=== PATIENT | female | born 1950 | race Caucasian/White ===

== ENCOUNTER 2023-08-26 13:34 | Inpatient (IN) | payer MEDICARE ==
--- NOTE | 2023-08-26 15:00 | ED ---
Abdominal Pain HPI - General Source: patient, RN notes reviewed Mode of arrival: ambulatory Limitations: no limitations <Ute Zamudio - Last Filed: 08/26/23 14:58> <Wesley Rodriguez - Last Filed: 08/26/23 20:16> - General Chief Complaint: Abdominal Pain Stated Complaint: abd pain Time Seen by Provider: 08/26/23 14:59 - History of Present Illness Initial Comments: patient is a 73-year-old female presenting to the ER with chief complaint of abdominal pain. Patient states the going on for the last couple of days. Patient denies any fevers or chills. Patient endorses nausea. (Ute Zamudio) 73-year-old female with past medical history significant for appendectomy presents to the ED with a chief complaint of abdominal pain. Patient states 5 days ago started to experience right lower abdominal pain. Pain is waxing and waning in nature. Pain does not radiate. Since onset, patient reports pain has increased in severity and yesterday, started to experience nausea and vomiting. Her last bowel movement was yesterday which patient reports was somewhat typical of her bowel movements but smaller than usual. Also notes in the weeks prior has had some constipation. Associated dysuria. Patient reports that it has been difficult to urinate over the past 2 days. Denies hematuria. Denies urinary frequency or urgency. No fever or chills. No chest pain or shortness of breath. (Wesley Rodriguez) - Related Data Allergies Allergy/AdvReac Type Severity Reaction Status Date / Time No Known Allergies Allergy Verified 08/26/23 14:11 Review of Systems ROS Other: All systems not noted in ROS Statement are negative. <Ute Zamudio - Last Filed: 08/26/23 14:58> ROS Other: All systems not noted in ROS Statement are negative. <Wesley Rodriguez - Last Filed: 08/26/23 20:16> ROS Statement: Those systems with pertinent positive or pertinent negative responses have been documented in the HPI. Past Medical History Past Medical History: Diabetes Mellitus, Hyperlipidemia, Thyroid Disorder History of Any Multi-Drug Resistant Organisms: None Reported Past Surgical History: Section Past Psychological History: No Psychological Hx Reported Smoking Status: Never smoker Past Alcohol Use History: None Reported Past Drug Use History: None Reported <Ute Zamudio - Last Filed: 08/26/23 14:58> General Exam Limitations: no limitations <Ute Zamudio - Last Filed: 08/26/23 14:58> General appearance: alert, in no apparent distress Neck exam: Present: normal inspection Respiratory exam: Present: normal lung sounds bilaterally Cardiovascular Exam: Present: regular rate, normal rhythm GI/Abdominal exam: Present: soft (Diffuse abdominal tenderness palpation worse in the right lower quadrant with guarding. No flank tenderness to percussion bilaterally.) Neurological exam: Present: alert, oriented X3 Skin exam: Present: warm, dry <Wesley Rodriguez - Last Filed: 08/26/23 20:16> - General Exam Comments Initial Comments: Visual Physical Exam Vital signs reviewed General: Well-appearing, nontoxic, no acute distress. Head: Normocephalic, atraumatic Eyes: PERRLA, EOMI ENT: Airway patent Chest: Nonlabored breathing Skin: No visual rash, normal skin tone Neuro: Alert and oriented 3 Musculoskeletal: No gross abnormalities (Ute Zamudio) Course Vital Signs 08/26/23 08/26/23 08/26/23 14:08 17:29 18:36 Temperature 98.1 F 98.2 F Pulse Rate 92 74 75 Respiratory 20 18 18 Rate Blood Pressure 114/58 119/69 127/66 O2 Sat by Pulse 97 94 L 94 L Oximetry Medical Decision Making <Ute Zamudio - Last Filed: 08/26/23 14:58> - Lab Data Result diagrams: 08/26/23 15:16 08/26/23 15:16 <Wesley Rodriguez - Last Filed: 08/26/23 20:16> - Medical Decision Making I performed the quick note portion of the exam. Electronically signed by Ute Zamudio PA-C (Ute Zamudio) Was pt. sent in by a medical professional or institution ([facility], [facility], urgent care, hospital, or usp...) When possible be specific @ -No Did you speak to anyone other than the patient for history (EMS, parent, family, police, friend...)? What history was obtained from this source @ -No Did you review nursing and triage notes (agree or disagree)? Why? @ -I reviewed and agree with nursing and triage notes Were old charts reviewed (outside hosp., previous admission, EMS record, old EKG, old radiological studies, urgent care reports/EKG's, usp records)? Report findings @ -No old charts were reviewed Differential Diagnosis (chest pain, altered mental status, abdominal pain women, abdominal pain men, vaginal bleeding, weakness, fever, dyspnea, syncope, headache, dizziness, GI bleed, back pain, seizure, CVA, palpatations, mental health, musculoskeletal)? @ -Differential Abdominal Pain Women: Appendicitis, Cholecystitis, diverticulosis, ischemic bowel, pancreatitis, hepatitis, UTI, gastroenteritis, AAA, incarcerated hernia, bowel obstruction, constipation, inflammatory bowel, hepatitis, peptic ulcer disease, splenic infa rction, perforated viscus, vulvitis, ovarian torsion, PID, kidney stone, placenta abruption, this is not meant to be an all-inclusive list EKG interpreted by me (3pts min.). @ -None X-rays interpreted by me (1pt min.). @ -None done CT interpreted by me (1pt min.). @ -CT abdomen and pelvis shows a distal small bowel obstruction caused by a moderate sized right inguinal hernia containing fat and some small bowel. U/S interpreted by me (1pt. min.). @ -None done What testing was considered but not performed or refused? (CT, X-rays, U/S, labs)? Why? @ -None What meds were considered but not given or refused? Why? @ -None Did you discuss the management of the patient with other professionals (professionals i.e. DrAngel, PA, LAY OUT CARPENTER, lab, RT, psych nurse, child protective services social worker, equipment associate, teacher, disability liaison officer, rn case manager hospice)? Give summary @ -My attending physician, Dr. Oakley, discussed the case with Dr. Dutton of surgery who accepted admission with consults to medicine. Was smoking cessation discussed for >3mins.? @ -No Was critical care preformed (if so, how long)? @ -No Were there social determinants of health that impacted care today? How? (Homelessness, low income, unemployed, alcoholism, drug addiction, transportation, low edu. Level, literacy, decrease access to med. care, halfway, rehab)? @ -No Was there de-escalation of care discussed even if they declined (Discuss DNR or withdrawal of care, Hospice)? DNR status @ -No What co-morbidities impacted this encounter? (DM, HTN, Smoking, COPD, CAD, Cancer, CVA, ARF, Chemo, Hep., AIDS, mental health diagnosis, sleep apnea, morbid obesity)? @ -None Was patient admitted / discharged? Hospital course, mention meds given and route, prescriptions, significant lab abnormalities, going to OR and other pertinent info. @ -Discharge 73-year-old female presenting to the ED with a chief complaint of abdominal pain for the past 4-5 days with onset of nausea and vomiting today. Laboratory studies reviewed. CBC remarkable for an elevated white blood cell count 14.8. Chemistry panel largely unremarkable. Lactic acid within normal limits. UA shows no significant evidence of infection. CT of the abdomen and pelvis showed a distal small bowel obstruction caused by a moderately sized right inguinal hernia. Attempts at reduction was made however unsuccessful. Patient will be admitted to surgery due to small bowel obstruction secondary to inguinal hernia. NG tube placed. Patient kept nothing by mouth. Discussed that of care with patient and family who verbalized agreement. Undiagnosed new problem with uncertain prognosis? @ -No Drug Therapy requiring intensive monitoring for toxicity (Heparin, Nitro, Insulin, Cardizem)? @ -No Were any procedures done? @ -No Diagnosis/symptom? @ -Small bowel obstruction, incarcerated right inguinal hernia Acute, or Chronic, or Acute on Chronic? @ -Acute Uncomplicated (without systemic symptoms) or Complicated (systemic symptoms)? @ -Uncomplicated Side effects of treatment? @ -No Exacerbation, Progression, or Severe Exacerbation? @ -No Poses a threat to life or bodily function? How? (Chest pain, USA, DC, pneumonia, PE, COPD, DKA, ARF, appy, cholecystitis, CVA, Diverticulitis, Homicidal, Suicidal, threat to staff... and all critical care pts) @ -Possibly (Wesley Rodriguez) - Lab Data Lab Results 08/26/23 08/26/23 08/26/23 Range/Units 15:16 15:16 15:16 WBC 14.8 H (3.8-10.6) k/uL RBC 5.16 (3.80-5.40) m/uL Hgb 15.8 (11.4-16.0) gm/dL Hct 44.9 (34.0-46.0) % MCV 86.9 (80.0-100.0) fL MCH 30.6 (25.0-35.0) pg MCHC 35.2 (31.0-37.0) g/dL RDW 12.9 (11.5-15.5) % Plt Count 443 (150-450) k/uL MPV 7.0 Sodium 131 L (137-145) mmol/L Potassium 4.3 (3.5-5.1) mmol/L Chloride 87 L (98-107) mmol/L Carbon Dioxide 31 H (22-30) mmol/L Anion Gap 13 mmol/L BUN 22 H (7-17) mg/dL Creatinine 0.72 (0.52-1.04) mg/dL Est GFR (CKD-EPI)AfAm >90 (>60 ml/min/1.73 sqM) Est GFR (CKD-EPI)NonAf 83 (>60 ml/min/1.73 sqM) Glucose 137 H (74-99) mg/dL Plasma Lactic Acid Juan Carlos (0.7-2.0) mmol/L Calcium 11.0 H (8.4-10.2) mg/dL Total Bilirubin 0.6 (0.2-1.3) mg/dL AST 29 (14-36) U/L ALT 20 (4-34) U/L Alkaline Phosphatase 105 (38-126) U/L Total Protein 8.2 (6.3-8.2) g/dL Albumin 5.1 H (3.5-5.0) g/dL Amylase 60 (30-110) U/L Lipase 44 (23-300) U/L Urine Color Yellow Urine Appearance Turbid H (Clear) Urine pH 5.5 (5.0-8.0) Ur Specific [place] 1.028 (1.001-1.035) Urine Protein 2+ H (Negative) Urine Glucose (UA) Negative (Negative) Urine Ketones 2+ H (Negative) Urine Blood Negative (Negative) Urine Nitrite Negative (Negative) Urine Bilirubin Negative (Negative) Urine Urobilinogen <2.0 (<2.0) mg/dL Ur Leukocyte Esterase Negative (Negative) Urine RBC 3 (0-5) /hpf Ur Squamous Epith Cells 9 H (0-4) /hpf Amorphous Sediment Few H (None) /hpf Hyaline Casts 19 H (0-2) /lpf Urine Mucus Many H (None) /hpf 08/26/23 Range/Units 15:16 WBC (3.8-10.6) k/uL RBC (3.80-5.40) m/uL Hgb (11.4-16.0) gm/dL Hct (34.0-46.0) % MCV (80.0-100.0) fL MCH (25.0-35.0) pg MCHC (31.0-37.0) g/dL RDW (11.5-15.5) % Plt Count (150-450) k/uL MPV Sodium (137-145) mmol/L Potassium (3.5-5.1) mmol/L Chloride (98-107) mmol/L Carbon Dioxide (22-30) mmol/L Anion Gap mmol/L BUN (7-17) mg/dL Creatinine (0.52-1.04) mg/dL Est GFR (CKD-EPI)AfAm (>60 ml/min/1.73 sqM) Est GFR (CKD-EPI)NonAf (>60 ml/min/1.73 sqM) Glucose (74-99) mg/dL Plasma Lactic Acid Juan Carlos 1.5 (0.7-2.0) mmol/L Calcium (8.4-10.2) mg/dL Total Bilirubin (0.2-1.3) mg/dL AST (14-36) U/L ALT (4-34) U/L Alkaline Phosphatase (38-126) U/L Total Protein (6.3-8.2) g/dL Albumin (3.5-5.0) g/dL Amylase (30-110) U/L Lipase (23-300) U/L Urine Color Urine Appearance (Clear) Urine pH (5.0-8.0) Ur Specific [place] (1.001-1.035) Urine Protein (Negative) Urine Glucose (UA) (Negative) Urine Ketones (Negative) Urine Blood (Negative) Urine Nitrite (Negative) Urine Bilirubin (Negative) Urine Urobilinogen (<2.0) mg/dL Ur Leukocyte Esterase (Negative) Urine RBC (0-5) /hpf Ur Squamous Epith Cells (0-4) /hpf Amorphous Sediment (None) /hpf Hyaline Casts (0-2) /lpf Urine Mucus (None) /hpf Disposition <Ute Zamudio - Last Filed: 08/26/23 14:58> Time of Disposition: 20:15 <Wesley Rodriguez - Last Filed: 08/26/23 20:16> Clinical Impression: Incarcerated hernia, SBO (small bowel obstruction) Disposition: ADMITTED IP TO THIS [facility] Condition: Good Referrals: None,Stated [REFERRING] - 1-2 days
[2023-08-26 15:36] LABS: HCT 44.9 % (34.0-46.0); HGB 15.8 gm/dL (11.4-16.0); MCH 30.6 pg (25.0-35.0); MCHC 35.2 g/dL (31.0-37.0); MCV 86.9 fL (80.0-100.0); Platelet Count 443 k/uL (150-450); RBC 5.16 m/uL (3.80-5.40); RDW 12.9 % (11.5-15.5); WBC 14.8 k/uL (3.8-10.6)
[2023-08-26 16:01] LABS: ALT 20 U/L (4-34); AST 29 U/L (14-36); African American GFR (CKD) >90 (>60 ml/min/1.73 sqM); Albumin 5.1 g/dL (3.5-5.0); Alkaline Phosphatase 105 U/L (38-126); Amylase 60 U/L (30-110); Anion Gap 13 mmol/L; Blood Urea Nitrogen 22 mg/dL (7-17); Carbon Dioxide 31 mmol/L (22-30); Chloride 87 mmol/L (98-107); Glucose 137 mg/dL (74-99); Lipase 44 U/L (23-300); Non-African American GFR(CKD) 83 (>60 ml/min/1.73 sqM); Potassium 4.3 mmol/L (3.5-5.1); Sodium 131 mmol/L (137-145); Total Bilirubin 0.6 mg/dL (0.2-1.3); Total Protein 8.2 g/dL (6.3-8.2)
[2023-08-26 16:04] LABS: Amorphous Sediment,Urine Few /hpf; Appearance,Urine Turbid (Clear); Bilirubin,Urine Negative (Negative); Blood,Urine Negative (Negative); Color,Urine Yellow; Glucose,Urine (UA) Negative (Negative); Hyaline Casts,Urine 19 /lpf (0-2); Ketones,Urine 2+ (Negative); Leukocyte Esterase,Urine Negative (Negative); Mucus,Urine Many /hpf; Nitrite,Urine Negative (Negative); PH, Urine 5.5 (5.0-8.0); Protein,Urine 2+ (Negative); RBC,Urine 3 /hpf (0-5); Specific Gravity,Urine 1.028 (1.001-1.035); Squamous Epithelial Cell,Urine 9 /hpf (0-4); Urobilinogen,Urine <2.0 mg/dL (<2.0)
[2023-08-26] MEDS ORDERED: SODIUM CHLORIDE 0.9% 1,000 ML IV STA (16:22)
[2023-08-26] MEDS ORDERED: KETOROLAC 15 MG/ML 1 ML VIAL IVP STA (16:22)
[2023-08-26] MEDS: ONDANSETRON 4 MG/2 ML VIAL IVP STA (16:50)
--- NOTE | 2023-08-26 19:23 | CT ---
EXAMINATION TYPE: CT abdomen pelvis wo con CT DLP: 515.6 mGycm, Automated exposure control for dose reduction was used. DATE OF EXAM: 08/26/2023 5:25 PM COMPARISON: None. CLINICAL INDICATION:Female, 73 years old with history of rlq pain hx appy dysuria; RLQ abdominal pain x 5 days. TECHNIQUE: Axial CT of the abdomen and pelvis. Sagittal and coronal reformats were created on a [employer] workstation. Contrast used: mL of , (none if empty) Oral contrast used: without Oral Contrast (none if empty) FINDINGS: Exam is limited by lack of contrast. LOWER CHEST: Heart size upper limits of normal. Prominent pericardial fat. No pericardial or pleural effusion. Mild subsegmental atelectasis in the lung bases. ABDOMEN LIVER: Unremarkable GALLBLADDER AND BILE DUCTS: A 1.5 cm calcified gallstone. Gallbladder is nondistended and shows no hernandez rrounding inflammatory change. No biliary ductal dilatation is seen. PANCREAS: Mild fatty infiltration without definite acute abnormality. SPLEEN: Unremarkable. ADRENAL GLANDS: Unremarkable. KIDNEYS AND URETERS: No evidence of hydronephrosis or renal calculus. The ureters are unremarkable. There are multiple pelvic phleboliths. PELVIS BLADDER: Mildly distended, grossly unremarkable. REPRODUCTIVE: Unremarkable. ABDOMEN & PELVIS STOMACH AND BOWEL: Stomach is mildly distended. There is some distention of the duodenum which is flu id-filled. Multiple additional more distal dilated predominantly fluid-filled small bowel loops, syed uring up to 3.4 cm diameter. Point of transition occurs within a moderate-sized right inguinal hernia , which contains fat and a loop of bowel; the distal loop of bowel appears fluid filled mildly disten ded, with bowel coursing through entering and exiting the hernia appearing decompressed or squeezed. There may be mild haziness of the surrounding fat. No bowel wall pneumatosis is seen. The small bowel downstream from the hernia appears decompressed. Appendix not seen, patient reports a history of umu endectomy. Mild/moderate stool throughout the colon as well as numerous diverticuli, which do not umu ear inflamed. PERITONEUM/RETROPERITONEUM: No evidence of pneumoperitoneum or free fluid. VASCULATURE: Moderate atherosclerotic calcification of the aorta and branches. No evidence of AAA. MUSCULOSKELETAL: Bones appear somewhat demineralized and there are moderate degenerative changes thro ughout the visualized spine. Grade 1 anterolisthesis L4 and L5, appears degenerative. LYMPH NODES: No gross evidence for lymphadenopathy. SOFT TISSUE/ABDOMINAL WALL: See description of obstructing right inguinal hernia above. No significan t left inguinal hernia identified. IMPRESSION: 1. Distal small bowel obstruction, caused by a moderate sized right inguinal hernia containing fat a nd a loop of small bowel. Correlate clinically to exclude strangulation and/or incarceration. 2. Multiple colonic diverticula are present, without signs of inflammation to suggest diverticulitis . 3. Cholelithiasis.
[2023-08-26] MEDS ORDERED: MORPHINE SULFATE 4 MG/ML SYRINGE IVP STA (19:44)
[2023-08-26] MEDS ORDERED: HYDROmorphone 1 MG/ML 1 ML SYRINGE IVP STA (19:44)
[2023-08-26] MEDS ORDERED: NALOXONE 0.4 MG/ML 1 ML VIAL IV PRN (20:16)
[2023-08-26] MEDS ORDERED: ONDANSETRON 4 MG/2 ML VIAL IVP PRN (20:16)
[2023-08-26] MEDS: SODIUM CHLORIDE 0.9% 1,000 ML IV SCH (20:24)
[2023-08-26] MEDS: PIPERACILLIN-TAZOBACTAM 3.375 GM in SODIUM CHLORIDE 0.9% 100 ML IVPB SCH (20:24)
--- NOTE | 2023-08-26 20:56 | XR ---
EXAMINATION TYPE: XR chest 1V portable DATE OF EXAM: 08/26/2023 8:34 PM CLINICAL INDICATION:Female, 73 years old with history of NG tube placement; H COMPARISON: None TECHNIQUE: XR chest 1V portable Frontal view of the chest. FINDINGS: Lungs/Pleura: There is no evidence of pleural effusion, focal consolidation, or pneumothorax. Pulmonary vascularity: Unremarkable. Heart/mediastinum: Cardiomediastinal silhouette is enlarged and stable. Musculoskeletal: No acute osseous pathology. Other findings: None Lines/Tubes: Nasogastric tube with its distal tip and side-port projecting under the diaphragm. IMPRESSION: No acute cardiopulmonary disease/process.
[2023-08-26 21:38] LABS: INR 0.9 (<1.2); Partial Thromboplastin Time 24.4 sec (22.0-30.0); Prothrombin Time 10.5 sec (10.0-12.5)
[2023-08-27] MEDS: HYDROmorphone 0.5 MG/0.5 ML SYRINGE IVP PRN (03:18)
[2023-08-27] MEDS: PIPERACILLIN-TAZOBACTAM 3.375 GM in SODIUM CHLORIDE 0.9% 100 ML IVPB SCH ×3 (03:20→22:35)
[2023-08-27] MEDS ORDERED: DEXTROSE 50% SYRINGE 50 ML IVP PRN ×2 (07:54)
[2023-08-27 08:01] LABS: Glucose,Whole Blood 122 mg/dL (70-110)
[2023-08-27] MEDS: INSULIN ASPART (NovoLOG) 100 UNIT/ML VIAL SQ SCH ×4 (08:05→21:46)
[2023-08-27 08:39] LABS: HCT 41.9 % (34.0-46.0); MCH 29.7 pg (25.0-35.0); MCHC 33.4 g/dL (31.0-37.0); MCV 89.1 fL (80.0-100.0); Mean Platelet Volume 7.6; Platelet Count 377 k/uL (150-450); RDW 13.3 % (11.5-15.5); WBC 12.4 k/uL (3.8-10.6)
[2023-08-27 08:51] LABS: ALT 17 U/L (4-34); AST 26 U/L (14-36); African American GFR (CKD) 89 (>60 ml/min/1.73 sqM); Albumin 3.9 g/dL (3.5-5.0); Albumin/Globulin Ratio 1.5; Alkaline Phosphatase 76 U/L (38-126); Anion Gap 11 mmol/L; Blood Urea Nitrogen 27 mg/dL (7-17); Calcium 9.5 mg/dL (8.4-10.2); Carbon Dioxide 26 mmol/L (22-30); Chloride 95 mmol/L (98-107); Globulin 2.6 g/dL; Glucose 120 mg/dL (74-99); Magnesium 1.9 mg/dL (1.6-2.3); Non-African American GFR(CKD) 77 (>60 ml/min/1.73 sqM); Sodium 132 mmol/L (137-145); Total Bilirubin 0.7 mg/dL (0.2-1.3); Total Protein 6.5 g/dL (6.3-8.2)
--- NOTE | 2023-08-27 09:28 | XR ---
EXAMINATION TYPE: XR chest 1V portable DATE OF EXAM: 08/27/2023 COMPARISON: 08/26/2023 HISTORY: NG tube placement TECHNIQUE: Single frontal view of the chest is obtained. FINDINGS: Limited inspiration with bilateral infiltrate and tiny effusion. No pneumothorax. NG tube seen extending into the left upper quadrant. Hypertrophic and degenerative change of the spine. No si zable pneumothorax. Dilated bowel loops in the upper abdomen. IMPRESSION: 1. NG tube appears in good position. 2. Bilateral lower lobe infiltrate. 3. Dilated small bowel loops in the upper abdomen.
[2023-08-27] MEDS: HYDROmorphone 1 MG/ML 1 ML SYRINGE IVP PRN ×3 (10:14→22:29)
[2023-08-27] MEDS: SODIUM CHLORIDE 0.9% 1,000 ML IV SCH ×2 (10:17→18:21)
[2023-08-27] MEDS ORDERED: IV FLUID CONTINUATION 400 ML IV ONE (10:25)
--- NOTE | 2023-08-27 10:40 | P.GSHP ---
History of Present Illness H&P Date: 08/27/23 CHIEF COMPLAINT: Right lower quadrant abdominal pain HISTORY OF PRESENT ILLNESS: This is a 73-year-old female who presented with right lower quadrant abdominal pain for the past 5 days. She's been having nausea no vomiting. She had noted a bulge in the right lower quadrant but thought it was hot. She reports her last bowel movement was 3 days ago. And she is no longer having any flatus. Computed tomography scan abdomen and pelvis had shown a distal small bowel obstruction secondary to a right inguinal hernia containing small bowel and fat. Past surgical history does include appendectomy and . Patient does have NG tube in place. Patient denies any cardiac history. PAST MEDICAL HISTORY: Diabetes Mellitus, Hyperlipidemia, Thyroid Disorder PAST SURGICAL HISTORY: , appendectomy MEDICATIONS: See below ALLERGIES: See below SOCIAL HISTORY: No illicit drug use. REVIEW OF SYSTEMS: CONSTITUTIONAL: Denies fever or chills. HEENT: Denies blurred vision, vision changes, or eye pain. Denies hemoptysis CARDIOVASCULAR: Denies chest pain or pressure. RESPIRATORY: No shortness of breath. GASTROINTESTINAL: See HPI for pertinent findings HEMATOLOGIC: Denies bleeding disorders. GENITOURINARY: Denies any blood in urine or increased urinary frequency. SKIN: Denies pruitis. Denies rash. PHYSICAL EXAM: VITAL SIGNS: Reviewed GENERAL: Well-developed in no acute distress. ABDOMEN: Mildly distended. Tenderness in the right lower quadrant. Inguinal hernia present firm nonreducible. And tender to palpation. NEUROLOGIC: Alert and oriented. Cranial nerves II through XII grossly intact. LABORATORY DATA: WBC 14.8 down to 12.4 Hgb 14.0 platelets 377 INR 0.9 Sodium 132 potassium 4.0 creatinine 0.76 Lactic acid 1.5 LFTs normal lipase 44 IMAGING: Computed tomography scan abdomen and pelvis reported some distal small bowel obstruction caused by moderate sized right inguinal hernia containing fat and loop of small bowel. Correlate clinically to exclude strangulation and/or incarceration. Multiple colonic diverticuli are present without signs of infl ammation to suggest diverticulitis. Cholelithiasis. Chest x-ray NG tube appears in good position. Bilateral lower lobe infiltrate. Dilated small bowel loops in the upper abdomen. ASSESSMENT: 1. Distal small bowel obstruction caused by a moderate size right inguinal hernia containing fat in a loop of small bowel PLAN: -Patient scheduled for open repair of incarcerated right inguinal hernia today with Dr. Dutton -Keep patient nothing by mouth -Continue antibiotics -Continue supportive care -Continue NG tube for decompression Physician Chief Engineer Production note has been reviewed by physician. Signing provider agrees with the documented findings, assessment, and plan of care. Past Medical History Past Medical History: Diabetes Mellitus, Hyperlipidemia, Thyroid Disorder History of Any Multi-Drug Resistant Organisms: None Reported Past Surgical History: Section Past Psychological History: No Psychological Hx Reported Smoking Status: Never smoker Past Alcohol Use History: None Reported Past Drug Use History: None Reported Medications and Allergies Home Medications Medication Instructions Recorded Confirmed Type Ascorbic Acid [Vitamin C] 1,000 mg PO DAILY 08/26/23 08/26/23 History Atorvastatin [Lipitor] 40 mg PO HS 08/26/23 08/26/23 History Cinnamon Bark [Cinnamon] 500 mg PO DAILY 08/26/23 08/26/23 History Cyanocobalamin (Vitamin B-12) 1,000 mcg PO DAILY 08/26/23 08/26/23 History [Vitamin B-12] Ferrous Sulfate [Feosol] 325 mg PO BID 08/26/23 08/26/23 History Fish Oil/Dha/Epa [Fish Oil 1,200 1 cap PO DAILY 08/26/23 08/26/23 History mg Fish Oil] Garlic 1,000 mg PO DAILY 08/26/23 08/26/23 History Levothyroxine Sodium [Synthroid] 50 mcg PO DAILY 08/26/23 08/26/23 History Magnesium Oxide [Magox 400] 400 mg PO DAILY 08/26/23 08/26/23 History Omeprazole [PriLOSEC] 40 mg PO DAILY 08/26/23 08/26/23 History Turmeric Root Extract [Turmeric] 500 mg PO DAILY 08/26/23 08/26/23 History Zinc Gluconate [Zinc] 50 mg PO DAILY 08/26/23 08/26/23 History hydroCHLOROthiazide [Hydrodiuril] 12.5 mg PO DAILY 08/26/23 08/26/23 History metFORMIN HCL [Glucophage] 850 mg PO BID 08/26/23 08/26/23 History Allergies Allergy/AdvReac Type Severity Reaction Status Date / Time codeine Allergy Nausea & Verified 08/27/23 10:27 Vomiting Surgical - Exam Vital Signs Temp Pulse Resp BP Pulse Ox 98.1 F 92 20 114/58 97 08/26/23 14:08 08/26/23 14:08 08/26/23 14:08 08/26/23 14:08 08/26/23 14:08 Results - Labs 08/27/23 08:07 08/27/23 08:07 Abnormal Lab Results - Last 24 Hours (Table) 08/26/23 08/26/23 08/26/23 Range/Units 15:16 15:16 15:16 WBC 14.8 H (3.8-10.6) k/uL Sodium 131 L (137-145) mmol/L Chloride 87 L (98-107) mmol/L Carbon Dioxide 31 H (22-30) mmol/L BUN 22 H (7-17) mg/dL Glucose 137 H (74-99) mg/dL POC Glucose (mg/dL) (70-110) mg/dL Calcium 11.0 H (8.4-10.2) mg/dL Albumin 5.1 H (3.5-5.0) g/dL Urine Appearance Turbid H (Clear) Urine Protein 2+ H (Negative) Urine Ketones 2+ H (Negative) Ur Squamous Epith Cells 9 H (0-4) /hpf Amorphous Sediment Few H (None) /hpf Hyaline Casts 19 H (0-2) /lpf Urine Mucus Many H (None) /hpf 08/27/23 08/27/23 08/27/23 Range/Units 08:00 08:07 08:07 WBC 12.4 H (3.8-10.6) k/uL Sodium 132 L (137-145) mmol/L Chloride 95 L (98-107) mmol/L Carbon Dioxide (22-30) mmol/L BUN 27 H (7-17) mg/dL Glucose 120 H (74-99) mg/dL POC Glucose (mg/dL) 122 H (70-110) mg/dL Calcium (8.4-10.2) mg/dL Albumin (3.5-5.0) g/dL Urine Appearance (Clear) Urine Protein (Negative) Urine Ketones (Negative) Ur Squamous Epith Cells (0-4) /hpf Amorphous Sediment (None) /hpf Hyaline Casts (0-2) /lpf Urine Mucus (None) /hpf Diabetes panel 08/26/23 08/27/23 Range/Units 15:16 08:07 Sodium 131 L 132 L (137-145) mmol/L Potassium 4.3 4.0 (3.5-5.1) mmol/L Chloride 87 L 95 L (98-107) mmol/L Carbon Dioxide 31 H 26 (22-30) mmol/L BUN 22 H 27 H (7-17) mg/dL Creatinine 0.72 0.76 (0.52-1.04) mg/dL Glucose 137 H 120 H (74-99) mg/dL Calcium 11.0 H 9.5 (8.4-10.2) mg/dL AST 29 26 (14-36) U/L ALT 20 17 (4-34) U/L Alkaline Phosphatase 105 76 (38-126) U/L Total Protein 8.2 6.5 (6.3-8.2) g/dL Albumin 5.1 H 3.9 (3.5-5.0) g/dL Calcium panel 08/26/23 08/27/23 Range/Units 15:16 08:07 Calcium 11.0 H 9.5 (8.4-10.2) mg/dL Albumin 5.1 H 3.9 (3.5-5.0) g/dL Pituitary panel 08/26/23 08/27/23 Range/Units 15:16 08:07 Sodium 131 L 132 L (137-145) mmol/L Potassium 4.3 4.0 (3.5-5.1) mmol/L Chloride 87 L 95 L (98-107) mmol/L Carbon Dioxide 31 H 26 (22-30) mmol/L BUN 22 H 27 H (7-17) mg/dL Creatinine 0.72 0.76 (0.52-1.04) mg/dL Glucose 137 H 120 H (74-99) mg/dL Calcium 11.0 H 9.5 (8.4-10.2) mg/dL Adrenal panel 08/26/23 08/27/23 Range/Units 15:16 08:07 Sodium 131 L 132 L (137-145) mmol/L Potassium 4.3 4.0 (3.5-5.1) mmol/L Chloride 87 L 95 L (98-107) mmol/L Carbon Dioxide 31 H 26 (22-30) mmol/L BUN 22 H 27 H (7-17) mg/dL Creatinine 0.72 0.76 (0.52-1.04) mg/dL Glucose 137 H 120 H (74-99) mg/dL Calcium 11.0 H 9.5 (8.4-10.2) mg/dL Total Bilirubin 0.6 0.7 (0.2-1.3) mg/dL AST 29 26 (14-36) U/L ALT 20 17 (4-34) U/L Alkaline Phosphatase 105 76 (38-126) U/L Total Protein 8.2 6.5 (6.3-8.2) g/dL Albumin 5.1 H 3.9 (3.5-5.0) g/dL Assessment and Plan Plan: Incarcerated right inguinal hernia. Patient will undergo open repair with possible small bowel resection.
--- NOTE | 2023-08-27 10:51 | P.CONS ---
History of Present Illness - Reason for Consult Consult date: 08/27/23 Medical Management Requesting physician: Leroy Dutton - History of Present Illness History of Presenting Illness: Patient is a very pleasant 73-year-old female with a past medical history of hypertension, hyperlipidemia, type II [id number] diabetes mellitus and hypothyroidism. She presented to the emergency department on 08/26/23 secondary to complaints of abdominal pain with intractable nausea and vomiting. She underwent full evaluation in the emergency department. Labs completed and reviewed. CBC showing leukocytosis with WBC count of 14.8, coagulation profile normal findings, BMP showing mild hyponatremia with sodium 131, hypochloremia with chloride 87, hypercarbia with bicarb of 31 and elevated anion gap at 13. Liver profile normal findings. Urinalysis contaminated specimen not concerning for infection. CT abdomen and pelvis completed showing distal small bowel obstruction caused by moderate sized right inguinal hernia containing fat concerning for incarcerated hernia, multiple colonic diverticula, and cholelithiasis. EKG showing sinus rhythm 71 bpm with an incomplete bundle branch block and diffuse T-wave inversion in leads 1, 2, aVL, aVF, and leads V2 through V6 upon personal review and interpretation. No previous EKGs available for comparison. Patient was found to have a small bowel obstruction with incarcerated hernia. Patient was admitted under Gen. surgery team and we were consulted this morning for medical management and evaluation of this patient. Review of systems: Pertinent positives and negatives as discussed in HPI, a complete review of systems was performed and all other systems are negative. Physical exam: Vital signs reviewed and stable. General: Nontoxic, no distress and appears stated age. Derm: Skin warm and dry, normal coloration for ethnicity. Head: Atraumatic, normocephalic and symmetric. Eyes: EOMs intact, no lid lag, and anicteric sclera Mouth: no lip lesions, mucus membranes moist Cardiovascular: regular rate and rhythm with normal S1S2, systolic murmur, positive posterior tibial pulses bilaterally, and cap refill < 2 seconds. Lungs: Respirations even, regular, and unlabored on room air. Lungs CTA bilaterally, no rhonchi, no rales, no wheezing, and no accessory muscle usage. Abdominal: distended with diffuse tenderness throughout all quadrants. Ext: ROM intact. No gross muscle atrophy, no edema, no contractures Neuro: Speech clear, face symmetrical and CN II-XII grossly intact with no noted focal neuro deficits Psych: Alert and oriented to person, place, time, and situation. Appropriate and pleasant affect. Assessment and Plan of Care: Intractable abdominal pain, nausea, and vomiting Small bowel obstruction with incarcerated hernia -Order placed for x-ray to verify NG tube placement. -Continue NG tube to low intermittent suction for bowel decompression. -Continue IV fluid hydration. -Continue symptomatic care and pain management with antibiotics and opioid pain medications. -Maintain NPO status. -Patient scheduled to undergo surgical intervention. -Recommend cardiac clearance prior to surgical procedure. However if there is an urgent/emergent need for surgical intervention and secondary to concerns of bowel necrosis and risks of mortality and delaying surgery, there is no absolute contraindication for patient to undergo surgical intervention from a medical standpoint at this time. Abnormal EKG -EKG showing sinus rhythm 71 bpm with diffuse T-wave inversion in leads 1, 2, aVL, aVF, and leads V2 through V6 upon personal review and interpretation. No previous EKGs available for comparison. -Order placed for cardiology and recommending cardiology clearance prior to surgical intervention if able. -Order placed for echocardiogram Hypertension Hyperlipidemia -Patient to continue daily medication regimen with atorvastatin 40 mg nightly. Will hold hydrochlorothiazide as patient is currently nothing by mouth pending surgical procedure and on gentle IV fluid hydration. Type II [id number] diabetes mellitus -Hold metformin and place patient on glycemic protocol with NovoLog sliding scale to maintain tight glycemic control throughout hospitalization. Hypothyroidism -Patient to continue daily medication regimen with levothyroxine 50 g daily. Vital signs reviewed and stable with blood pressure 117/69, heart rate 61, respiratory rate 20, temperature 98.1F, SpO2 of 95% on room air. Thank you for allowing us to participate in the care of this pleasant patient. Do not hesitate to contact us with questions. Someone can be reached from the [facility] hospitalist group all hours of the day at [phone] or via [employer]. Patient was seen independently by Nurse Practitioner. This document was prepared using [employer] dictation software. Please allow for errors in natural foods clerk while rare they do occur. Dewayne Nava NP rendered care for this patient independently, reviewed the find ings and plan as documented in the note above. I did not physically speak with or examine the patient on this date. Past Medical History Past Medical History: Diabetes Mellitus, Hyperlipidemia, Thyroid Disorder History of Any Multi-Drug Resistant Organisms: None Reported Past Surgical History: Section Past Psychological History: No Psychological Hx Reported Smoking Status: Never smoker Past Alcohol Use History: None Reported Past Drug Use History: None Reported - Past Family History Mother Family Medical History: Diabetes Mellitus, Hypertension, Myocardial Infarction ([place]) Father Family Medical History: Congestive Heart Failure (CHF), Coronary Artery Disease (CAD), Hypertension Medications and Allergies Home Medications Medication Instructions Recorded Confirmed Type Ascorbic Acid [Vitamin C] 1,000 mg PO DAILY 08/26/23 08/26/23 History Atorvastatin [Lipitor] 40 mg PO HS 08/26/23 08/26/23 History Cinnamon Bark [Cinnamon] 500 mg PO DAILY 08/26/23 08/26/23 History Cyanocobalamin (Vitamin B-12) 1,000 mcg PO DAILY 08/26/23 08/26/23 History [Vitamin B-12] Ferrous Sulfate [Feosol] 325 mg PO BID 08/26/23 08/26/23 History Fish Oil/Dha/Epa [Fish Oil 1,200 1 cap PO DAILY 08/26/23 08/26/23 History mg Fish Oil] Garlic 1,000 mg PO DAILY 08/26/23 08/26/23 History Levothyroxine Sodium [Synthroid] 50 mcg PO DAILY 08/26/23 08/26/23 History Magnesium Oxide [Magox 400] 400 mg PO DAILY 08/26/23 08/26/23 History Omeprazole [PriLOSEC] 40 mg PO DAILY 08/26/23 08/26/23 History Turmeric Root Extract [Turmeric] 500 mg PO DAILY 08/26/23 08/26/23 History Zinc Gluconate [Zinc] 50 mg PO DAILY 08/26/23 08/26/23 History hydroCHLOROthiazide [Hydrodiuril] 12.5 mg PO DAILY 08/26/23 08/26/23 History metFORMIN HCL [Glucophage] 850 mg PO BID 08/26/23 08/26/23 History Allergies Allergy/AdvReac Type Severity Reaction Status Date / Time codeine Allergy Nausea & Verified 08/27/23 10:27 Vomiting Physical Exam Vitals: Vital Signs Temp Pulse Resp BP Pulse Ox 08/27/23 06:43 55 L 16 115/44 96 08/27/23 02:00 66 14 109/67 96 08/27/23 01:21 60 16 128/78 97 08/26/23 23:16 61 14 112/67 97 08/26/23 21:10 97 08/26/23 21:00 63 16 94/52 87 L 08/26/23 18:36 98.2 F 75 18 127/66 94 L 08/26/23 17:29 74 18 119/69 94 L 08/26/23 14:08 98.1 F 92 20 114/58 97 Results CBC & Chem 7: 08/28/23 05:44 08/28/23 06:00 Labs: Abnormal Lab Results - Last 24 Hours (Table) 08/26/23 08/26/23 08/26/23 Range/Units 15:16 15:16 15:16 WBC 14.8 H (3.8-10.6) k/uL Sodium 131 L (137-145) mmol/L Chloride 87 L (98-107) mmol/L Carbon Dioxide 31 H (22-30) mmol/L BUN 22 H (7-17) mg/dL Glucose 137 H (74-99) mg/dL Calcium 11.0 H (8.4-10.2) mg/dL Albumin 5.1 H (3.5-5.0) g/dL Urine Appearance Turbid H (Clear) Urine Protein 2+ H (Negative) Urine Ketones 2+ H (Negative) Ur Squamous Epith Cells 9 H (0-4) /hpf Amorphous Sediment Few H (None) /hpf Hyaline Casts 19 H (0-2) /lpf Urine Mucus Many H (None) /hpf
[2023-08-27 11:00] LABS: Glucose,Whole Blood 112 mg/dL (70-110)
[2023-08-27] MEDS: ONDANSETRON 4 MG/2 ML VIAL IVP STA (11:00)
[2023-08-27] MEDS ORDERED: HEPARIN SODIUM,PORCINE/PF 5,000 UNIT/0.5 ML SYRINGE SQ ONE (11:04)
[2023-08-27] MEDS ORDERED: MIDAZOLAM 2 MG/2 ML VIAL IVP ONE (11:13)
[2023-08-27] MEDS ORDERED: HEPARIN SODIUM,PORCINE 5,000 UNIT/ML 1 ML VIAL SQ ONE (11:25)
--- NOTE | 2023-08-27 11:29 | P.ANPRN ---
Procedure Note - Anesthesia - Nerve Block Performed Right Erector Spinae Single Time Out Performed: Yes Date of Procedure: 08/27/23 Procedure Start Time: :13 Procedure Stop Time: :18 Location of Patient: PreOp Indication: Acute Post-Operative Pain, Requested by Surgeon Sedation Type: Sedate with meaningful contact maintained Preparation: Sterile Prep Position: Sitting Catheter: None Needle Types: Pajunk Needle Gauge: 21 Ultrasound used to visualize needle placement: Yes Ultrasound used to observe medication spread: Yes Injectate: 0.5% Ropivacaine (see comment for volume) (Ropivacaine 15 ml+NS 10ml) Blood Aspirated: No Pain Paresthesia on Injection Noted: No Resistance on Injection: Normal Image Stored and Saved: Yes Events: Uneventful and Well Tolerated
[2023-08-27] MEDS ORDERED: ETOMIDATE 2 MG/ML 10 ML VIAL ONE (11:31)
[2023-08-27] MEDS ORDERED: NEOSTIGMINE 1 MG/ML 10 ML VIAL ONE (11:31)
[2023-08-27] MEDS ORDERED: SUCCINYLCHOLINE CHLORIDE 200 MG/10 ML VIAL IV ONE (11:31)
[2023-08-27] MEDS ORDERED: ROPIVACAINE 5 MG/ML 30 ML VIAL ONE (11:31)
[2023-08-27] MEDS ORDERED: GLYCOPYRROLATE 0.2 MG/ML 2 ML VIAL ONE (11:31)
[2023-08-27] MEDS ORDERED: ROCURONIUM 10 MG/ML (5 ML VIAL) IV ONE (11:31)
[2023-08-27] MEDS ORDERED: fentaNYL (PF) 50 MCG/ML 2 ML AMP ONE (11:31)
[2023-08-27] MEDS ORDERED: SODIUM CHLORIDE 0.9% (PF) 10 ML VIAL ONE (11:31)
[2023-08-27] MEDS ORDERED: LIDOCAINE 1% INJ 10MG/ML (20 ML MDV) ONE (11:31)
--- NOTE | 2023-08-27 11:34 | P.CRDCN ---
History of Present Illness History of present illness: HISTORY OF PRESENTING ILLNESS Patient is a pleasant 73-year-old female with history of hypertension, hyperlipidemia, diabetes mellitus type 2 hypothyroidism and strong family history of coronary artery disease who presents secondary to abdominal pain. Patient has been having abdominal pain for the last few days which has worsened and having nausea and throwing up and therefore presents emergency department. She does have right lower abdominal pain and CT abdomen and pelvis showed distal small bowel obstruction with right inguinal hernia containing fat and loop of small bowel and cannot exclude strangulation/incarceration. An NG tube was placed however still having abdominal pain. Blood work shows white blood cell count 14.8, hemoglobin 15.8, sodium 131, glucose 137. She denies any consistent chest pain however will have twinges which lasts for 3-4 seconds not typically with any exertion. She has not consistently walk up stairs however can walk a city block without stopping without any chest pain or shortness breath. She does have chronic dyspnea which she attributes to her age and not been as active. She does have strong family history of multiple brothers as well as both mom and dad dying in their 40s from heart disease as well as some brothers with defibrillators and stents. EKG shows sinus rhythm, intraventricular conduction delay with Q waves V1 and V2, LVH with T-wave inversions V3 through V6, 1 and aVL. There is no comparison. REVIEW OF SYSTEMS At the time of my exam: CONSTITUTIONAL: Denies fever or chills. CARDIOVASCULAR: +rare 2-4 second episodes of chest pain, none recently, +chronic shortness of breath, no orthopnea, PND or palpitations. RESPIRATORY: Denies cough. GASTROINTESTINAL: +abdominal pain, no diarrhea, constipation, +nausea + vom iting. MUSCULOSKELETAL: Denies myalgias. NEUROLOGIC: Denies numbness, tingling or weakness. ENDOCRINE: Denies fatigue, weight change, polydipsia or polyurina. GENITOURINARY: Denies burning, hematuria or urgency with micturation. HEMATOLOGIC: Denies history of anemia or bleeding. PHYSICAL EXAMINATION Vital signs reviewed. CONSTITUTIONAL: No apparent distress. HEENT: Head is normocephalic. Pupils are equal, round. Sclerae anicteric. Mucous membranes of the mouth are moist. No JVD. No carotid bruit. CHEST EXAMINATION: Lungs are clear to auscultation. No chest wall tenderness is noted on palpation or with deep breathing. HEART EXAMINATION: Regular rate and rhythm. S1, S2 heard. No murmurs, gallops or rub. ABDOMEN: Soft, +tender. EXTREMITIES: 2+ peripheral pulses, no lower extremity edema and no calf tenderness. NEUROLOGIC EXAMINATION: Patient is awake, alert and oriented x3. ASSESSMENT 1. Preoperative cardiovascular exam 2. Abnormal EKG 3. Small bowel obstruction, cannot exclude incarceration 4. SIRS 5. Chronic dyspnea 6. Atypical episodes of chest pain 7. Strong family history of CAD 8. Diabetes mellitus type 2 PLAN Patient's main presentation consistent with small bowel obstruction with CAT scan showing small bowel obstruction of the right inguinal hernia. Patient with abnormal EKG with T-wave inversions with no prior however not having any significant angina-type symptoms and likely consistent with LVH with strain. Patient can do 4 mets of activity without any angina-type symptoms and is higher risk given multiple risk factors however no absolute contraindications to surgery and on episodes appear to outweigh the risks. Patient is cleared from a cardiovascular standpoint for surgery. Check echo for completeness sake and likely given multiple risk factors and family history May consider outpatient stress testing. Past Medical History Past Medical History: Diabetes Mellitus, Hyperlipidemia, Thyroid Disorder History of Any Multi-Drug Resistant Organisms: None Reported Past Surgical History: Section Past Psychological History: No Psychological Hx Reported Smoking Status: Never smoker Past Alcohol Use History: None Reported Past Drug Use History: None Reported Medications and Allergies Home Medications Medication Instructions Recorded Confirmed Type Ascorbic Acid [Vitamin C] 1,000 mg PO DAILY 08/26/23 08/26/23 History Atorvastatin [Lipitor] 40 mg PO HS 08/26/23 08/26/23 History Cinnamon Bark [Cinnamon] 500 mg PO DAILY 08/26/23 08/26/23 History Cyanocobalamin (Vitamin B-12) 1,000 mcg PO DAILY 08/26/23 08/26/23 History [Vitamin B-12] Ferrous Sulfate [Feosol] 325 mg PO BID 08/26/23 08/26/23 History Fish Oil/Dha/Epa [Fish Oil 1,200 1 cap PO DAILY 08/26/23 08/26/23 History mg Fish Oil] Garlic 1,000 mg PO DAILY 08/26/23 08/26/23 History Levothyroxine Sodium [Synthroid] 50 mcg PO DAILY 08/26/23 08/26/23 History Magnesium Oxide [Magox 400] 400 mg PO DAILY 08/26/23 08/26/23 History Omeprazole [PriLOSEC] 40 mg PO DAILY 08/26/23 08/26/23 History Turmeric Root Extract [Turmeric] 500 mg PO DAILY 08/26/23 08/26/23 History Zinc Gluconate [Zinc] 50 mg PO DAILY 08/26/23 08/26/23 History hydroCHLOROthiazide [Hydrodiuril] 12.5 mg PO DAILY 08/26/23 08/26/23 History metFORMIN HCL [Glucophage] 850 mg PO BID 08/26/23 08/26/23 History Allergies Allergy/AdvReac Type Severity Reaction Status Date / Time codeine Allergy Nausea & Verified 08/27/23 10:27 Vomiting Physical Exam Vitals: Vital Signs Temp Pulse Pulse Resp BP BP Pulse Ox 08/27/23 10:30 97.7 F 72 16 108/54 94 L 08/27/23 10:09 66 18 115/63 96 08/27/23 08:00 98.1 F 61 20 117/69 95 08/27/23 06:43 55 L 16 115/44 96 08/27/23 02:00 66 14 109/67 96 08/27/23 01:21 60 16 128/78 97 08/26/23 23:16 61 14 112/67 97 08/26/23 21:10 97 08/26/23 21:00 63 16 94/52 87 L 08/26/23 18:36 98.2 F 75 18 127/66 94 L 08/26/23 17:29 74 18 119/69 94 L 08/26/23 14:08 98.1 F 92 20 114/58 97 Results 08/27/23 08:07 08/27/23 08:07 Cardiac Enzymes 08/26/23 08/27/23 Range/Units 15:16 08:07 AST 29 26 (14-36) U/L Coagulation 08/26/23 Range/Units 20:49 PT 10.5 (10.0-12.5) sec APTT 24.4 (22.0-30.0) sec CBC 08/26/23 08/27/23 Range/Units 15:16 08:07 WBC 14.8 H 12.4 H (3.8-10.6) k/uL RBC 5.16 4.70 (3.80-5.40) m/uL Hgb 15.8 14.0 (11.4-16.0) gm/dL Hct 44.9 41.9 (34.0-46.0) % Plt Count 443 377 (150-450) k/uL Comprehensive Metabolic Panel 08/26/23 08/27/23 Range/Units 15:16 08:07 Sodium 131 L 132 L (137-145) mmol/L Potassium 4.3 4.0 (3.5-5.1) mmol/L Chloride 87 L 95 L (98-107) mmol/L Carbon Dioxide 31 H 26 (22-30) mmol/L BUN 22 H 27 H (7-17) mg/dL Creatinine 0.72 0.76 (0.52-1.04) mg/dL Glucose 137 H 120 H (74-99) mg/dL Calcium 11.0 H 9.5 (8.4-10.2) mg/dL AST 29 26 (14-36) U/L ALT 20 17 (4-34) U/L Alkaline Phosphatase 105 76 (38-126) U/L Total Protein 8.2 6.5 (6.3-8.2) g/dL Albumin 5.1 H 3.9 (3.5-5.0) g/dL Current Medications Generic Name Dose Route Start Last Admin Trade Name Freq PRN Reason Stop Dose Admin Atorvastatin Calcium 40 mg 08/27/23 21:00 Atorvastatin 40 Mg Tab PO HS MAYLIN Dextrose/Water 25 ml 08/27/23 07:54 Dextrose 50% Syringe 50 Ml IVP PER PROTOCOL PRN Hypoglycemia Protocol Dextrose/Water 50 ml 08/27/23 07:54 Dextrose 50% Syringe 50 Ml IVP PER PROTOCOL PRN Hypoglycemia Protocol Hydromorphone HCl 0.5 mg 08/26/23 20:16 08/27/23 03:18 Hydromorphone 0.5 Mg/0.5 Ml Syringe IVP 0.5 mg Q3HR PRN Administration Moderate Pain (Scale 4 to 6) Hydromorphone HCl 1 mg 08/26/23 20:16 08/27/23 10:14 Hydromorphone 1 Mg/Ml 1 Ml Syringe IVP 1 mg Q3HR PRN Administration Severe Pain (Scale 7 to 10) Sodium Chloride 1,000 mls @ 75 mls/hr 08/26/23 20:00 08/27/23 10:17 Saline 0.9% IV 75 mls/hr .[id number] [facility] Administration Piperacillin Sod/Tazobactam 100 mls @ 25 mls/hr 08/26/23 20:00 08/27/23 03:20 Sod 3.375 gm/ Sodium Chloride IVPB 25 mls/hr Q8H [facility] Administration Protocol Insulin Aspart 0 unit 08/27/23 08:00 08/27/23 08:05 Insulin Aspart (Novolog) 100 Unit/Ml Vial SQ Not Given Q4HR [facility] Protocol Levothyroxine Sodium 50 mcg 08/28/23 06:30 Levothyroxine 50 Mcg Tab PO DAILY@0630 [facility] Naloxone HCl 0.2 mg 08/26/23 20:16 Naloxone 0.4 Mg/Ml 1 Ml Vial IV Q2M PRN Opioid Reversal Ondansetron HCl 4 mg 08/26/23 20:16 Ondansetron 4 Mg/2 Ml Vial IVP Q8HR PRN Nausea And Vomiting 08/27/23 08:07 08/27/23 08:07
[2023-08-27] MEDS ORDERED: LACTATED RINGERS 1,000 ML IV ONE ×3 (11:54→14:30)
[2023-08-27] MEDS ORDERED: NALOXONE 0.4 MG/ML 1 ML VIAL IV PRN (12:40)
[2023-08-27] MEDS ORDERED: HYDROmorphone 0.5 MG/0.5 ML SYRINGE IVP ONE ×2 (13:05→13:53)
[2023-08-27] MEDS ORDERED: HYDROmorphone 0.5 MG/0.5 ML SYRINGE SQ ONE (13:30)
[2023-08-27] MEDS ORDERED: ASPIRIN 81 MG PO STA (16:09)
[2023-08-27 16:13] LABS: Glucose,Whole Blood 114 mg/dL (70-110)
[2023-08-27 20:23] LABS: Glucose,Whole Blood 101 mg/dL (70-110)
[2023-08-27] MEDS: ATORVASTATIN 40 MG TAB PO SCH (21:47)
[2023-08-28 00:08] LABS: Glucose,Whole Blood 119 mg/dL (70-110)
[2023-08-28] MEDS: INSULIN ASPART (NovoLOG) 100 UNIT/ML VIAL SQ SCH ×6 (01:10→21:44)
[2023-08-28] MEDS: HYDROmorphone 1 MG/ML 1 ML SYRINGE IVP PRN ×5 (03:47→22:03)
[2023-08-28 05:37] LABS: Glucose,Whole Blood 110 mg/dL (70-110)
[2023-08-28] MEDS: LEVOTHYROXINE 50 MCG TAB PO SCH (06:03)
[2023-08-28] MEDS: PIPERACILLIN-TAZOBACTAM 3.375 GM in SODIUM CHLORIDE 0.9% 100 ML IVPB SCH ×3 (06:29→22:05)
[2023-08-28 08:02] LABS: Glucose,Whole Blood 91 mg/dL (70-110)
[2023-08-28 08:30] LABS: Basophils # (A) 0.03 X 10*3/uL (0.00-0.10); Basophils % (A) 0.4 %; Eosinophils # (A) 0.01 X 10*3/uL (0.04-0.35); Eosinophils % (A) 0.1 %; HCT 39.1 % (37.2-46.3); HGB 12.6 g/dL (12.0-15.0); Lymphocytes # (A) 0.76 X 10*3/uL (0.90-5.00); MCH 28.6 pg (27.0-32.0); MCHC 32.2 g/dL (32.0-37.0); MCV 88.9 FL (80.0-97.0); Monocytes # (A) 0.72 X 10*3/uL (0.20-1.00); Monocytes % (A) 8.5 %; NRBC Per 100 WBC 0 X 10*3/uL (0.00-0.01); Neutrophils # (A) 6.91 X 10*3/uL (1.80-7.70); Neutrophils % (A) 81.6 %; Platelet Count 318 X 10*3/uL (140-440); RDW 13.5 % (11.5-14.5); WBC 8.46 X 10*3/uL (4.50-10.00)
[2023-08-28] MEDS: ENOXAPARIN 40 MG/0.4 ML SYRINGE SQ SCH (08:43)
--- NOTE | 2023-08-28 10:55 | P.PN ---
Subjective Progress Note Date: 08/28/23 History of Presenting Illness: Patient is a very pleasant 73-year-old female with a past medical history of hypertension, hyperlipidemia, type II agr-exugisr-vzmtlavqj diabetes mellitus and hypothyroidism. She presented to the emergency department on 08/26/23 secondary to complaints of abdominal pain with intractable nausea and vomiting. She underwent full evaluation in the emergency department. Labs completed and reviewed. CBC showing leukocytosis with WBC count of 14.8, coagulation profile normal findings, BMP showing mild hyponatremia with sodium 131, hypochloremia with chloride 87, hypercarbia with bicarb of 31 and elevated anion gap at 13. Liver profile normal findings. Urinalysis contaminated specimen not concerning for infection. CT abdomen and pelvis completed showing distal small bowel obstruction caused by moderate sized right inguinal hernia containing fat concerning for incarcerated hernia, multiple colonic diverticula, and cholelithiasis. EKG showing sinus rhythm 71 bpm with an incomplete bundle branch block and diffuse T-wave inversion in leads 1, 2, aVL, aVF, and leads V2 through V6 upon personal review and interpretation. No previous EKGs available for comparison. Patient was found to have a small bowel obstruction with incarcerated hernia. Patient was admitted under Gen. surgery team and we were consulted this morning for medical management and evaluation of this patient. Physical exam: Patient seen and fully evaluated at bedside this morning. NG tube remains in place she is postop day 1. Patient reports feeling much better today stating her abdomen is overall sore but not painful like yesterday. She denies having any cardiac complaints including chest pain, palpitations, shortness of breath, cough or congestion, dizziness, lightheadedness, or experiencing any numbness/tingling/weakness/swelling in extremities. Vital signs reviewed and stable. General: Nontoxic, no distress and appears stated age. Derm: Skin warm and dry, normal coloration for ethnicity. Head: Atraumatic, normocephalic and symmetric. Eyes: EOMs intact, no lid lag, and anicteric sclera Mouth: no lip lesions, mucus membranes moist Cardiovascular: regular rate and rhythm with normal S1S2, systolic murmur, positive posterior tibial pulses bilaterally, and cap refill < 2 seconds. Lungs: Respirations even, regular, and unlabored on room air. Lungs CTA bilaterally, no rhonchi, no rales, no wheezing, and no accessory muscle usage. Abdominal: Vertical incision just lateral to umbilicus and right side of abdomen. Dressing clean, dry, and intact. NG tube in place. Mendoza catheter in place with cloudy urine and significant amount of sediment present. Ext: ROM intact. No gross muscle atrophy, no edema, no contractures Neuro: Speech clear, face symmetrical and CN II-XII grossly intact with no noted focal neuro deficits Psych: Alert and oriented to person, place, time, and situation. Appropriate and pleasant affect. Assessment and Plan of Care: Small bowel obstruction with incarcerated hernia Status post open repair of incarcerated right inguinal hernia with small bowel resection 08/27/23 -Continue NG tube -Strict NPO until diet is advanced by general surgery team. -Management per primary admitting general surgery team including wound/dressing care, pain management, DVT prophylaxis, NG tube management, and advancement of diet. Elevated troponins, possibly resulting from demand ischemia secondary to bowel necrosis New-onset left bundle branch block -Initial EKG showing sinus rhythm 71 bpm with incomplete block and diffuse T- wave inversion in leads 1, 2, aVL, and leads V2 through V6 upon personal review and interpretation. No previous EKGs available for comparison. -Repeat EKG showing normal sinus rhythm with left bundle branch block at 83 bpm. -Troponins trended overnight resulting in 0.363, 0.459, and 0.422. -Patient was given aspirin 324 mg by mouth 1 dose, she is post surgical open repair of incarcerated right inguinal hernia and bowel resection no anticoagulation until cleared by general surgery team. -Order placed for cardiology and recommending cardiology clearance prior to surgical intervention if able. -Echocardiogram completed pending results -Cardiology following. Appreciate recommendations. Hypertension Hyperlipidemia -Patient to continue daily medication regimen with atorvastatin 40 mg nightly. Will hold hydrochlorothiazide as patient is currently nothing by mouth pending surgical procedure and on gentle IV fluid hydration. Type II hud-xizhqyj-ogreqjqzt diabetes mellitus -Hold metformin and place patient on glycemic protocol with NovoLog sliding scale to maintain tight glycemic control throughout hospitalization. Hypothyroidism -Patient to continue daily medication regimen with levothyroxine 50 g daily. Data and imaging reviewed: -Troponins trended overnight resulting in 0.363, 0.459, and 0.422. CBC showing stable postoperative hemoglobin of 12.6 and resolution of leukocytosis from previous 14.8 down to 8.46. BMP unremarkable. Magnesium normal findings at 1.8. Liver profile also normal findings. -Vital signs reviewed and stable with blood pressure 123/67, heart rate 86, respiratory rate 16, temp 98.9F, SpO2 of 93% on room air. Thank you for allowing us to participate in the care of this pleasant patient. Do not hesitate to contact us with questions. Someone can be reached from the [facility] hospitalist group all hours of the day at [phone] or via [employer]. Patient was seen independently by Nurse Practitioner. This document was prepared using [employer] dictation software. Please allow for errors in milk pickup driver while rare they do occur. Dewayne Nava NP rendered care for this patient independently, reviewed the findings and plan as documented in the note above. I did not physically speak with or examine the patient on this date. Objective - Vital Signs Vital signs: Vital Signs Temp 98.9 F 08/28/23 07:22 Pulse 86 08/28/23 07:22 Resp 16 08/28/23 07:22 BP 123/67 08/28/23 07:22 Pulse Ox 93 L 08/28/23 07:22 FiO2 Intake & Output 08/27/23 08/28/23 08/28/23 18:59 06:59 18:59 Intake Total 2400 Output Total 125 600 Balance 2275 -600 Weight 68.039 kg Intake: IV 1400 Intake, IV Titration 1000 Amount Lactated Ringers 1,000 ml 1000 @ 0 mls/hr IV .[employer] [facility] Rx#:[id number] Output: Gastric Drainage 100 Urine 600 Estimated Blood Loss 25 Other: Voiding Method Bedside Commode Indwelling Catheter - Labs CBC & Chem 7: 08/28/23 05:44 08/28/23 06:00 Labs: Abnormal Lab Results - Last 24 Hours (Table) 08/27/23 08/27/23 08/27/23 Range/Units 08:07 10:59 16:12 Lymphocytes # (0.90-5.00) X 10*3/uL Eosinophils # (0.04-0.35) X 10*3/uL POC Glucose (mg/dL) 112 H 114 H (70-110) mg/dL Troponin I 0.363 H* (0.000-0.034) ng/mL 08/27/23 08/27/23 08/28/23 Range/Units 17:11 21:36 00:06 Lymphocytes # (0.90-5.00) X 10*3/uL Eosinophils # (0.04-0.35) X 10*3/uL POC Glucose (mg/dL) 119 H (70-110) mg/dL Troponin I 0.459 H* 0.422 H* (0.000-0.034) ng/mL 08/28/23 Range/Units 05:44 Lymphocytes # 0.76 L (0.90-5.00) X 10*3/uL Eosinophils # 0.01 L (0.04-0.35) X 10*3/uL POC Glucose (mg/dL) (70-110) mg/dL Troponin I (0.000-0.034) ng/mL
[2023-08-28 11:18] LABS: ALT 11 U/L (8-44); AST 21 U/L (13-35); Albumin 3.4 g/dL (3.8-4.9); Albumin/Globulin Ratio 1.89 Ratio (1.60-3.17); Alkaline Phosphatase 64 U/L (41-126); BUN/Creat Ratio 28.88 Ratio (12.00-20.00); Blood Urea Nitrogen 23.1 mg/dL (9.0-27.0); Chloride 101 mmol/L (96-109); Globulin 1.8 g/dL (1.6-3.3); Glucose 100 mg/dL (70-110); Magnesium 1.8 mg/dL (1.5-2.4); Potassium 4.2 mmol/L (3.5-5.5); Sodium 139 mmol/L (135-145); Total Bilirubin 0.5 mg/dL (0.3-1.2); Total Protein 5.2 g/dL (6.2-8.2)
--- NOTE | 2023-08-28 11:25 | P.PN ---
Subjective Progress Note Date: 08/28/23 CHIEF COMPLAINT: Small bowel obstruction secondary to incarcerated right inguinal hernia HISTORY OF PRESENT ILLNESS: Patient is postop day #1 status post open repair of incarcerated right inguinal hernia with small bowel resection. Patient reports her pain is controlled. She denies any nausea. Denies any flatus. Afebrile. NG tube with 100 and WBC is down from 12.4-8.46 Hgb 12.6 platelets 318 sodium is 139 potassium 4.2 creatinine 0.8 troponins elevated. Patient followed by cardiology service. Echo results pending. PHYSICAL EXAM: VITAL SIGNS: Reviewed. GENERAL: Well-developed in no acute distress. ABDOMEN: Soft. Nondistended. Tender incision site. Prevana wound vac intact. NEUROLOGIC: Alert and oriented. Cranial nerves II through XII grossly intact. ASSESSMENT: 1. Small bowel obstruction secondary to incarcerated right inguinal hernia PLAN: -Keep patient nothing by mouth -Continue NG tube for decompression -Continue IV fluids -Continue pain management -Encourage patient to use incentive spirometer -Encourage patient to increase activity level -GI prophylaxis Pepcid and DVT prophylaxis Lovenox Physician Refrigerating Technician note has been reviewed by physician. Signing provider agrees with the documented findings, assessment, and plan of care. Objective - Vital Signs Vital signs: Vital Signs Temp 98.9 F 08/28/23 07:22 Pulse 86 08/28/23 07:22 Resp 16 08/28/23 07:22 BP 123/67 08/28/23 07:22 Pulse Ox 93 L 08/28/23 07:22 FiO2 Intake & Output 08/27/23 08/28/23 08/28/23 18:59 06:59 18:59 Intake Total 2400 Output Total 125 600 Balance 2275 -600 Weight 68.039 kg Intake: IV 1400 Intake, IV Titration 1000 Amount Lactated Ringers 1,000 ml 1000 @ 0 mls/hr IV .[facility] Rx#:[id number] Output: Gastric Drainage 100 Urine 600 Estimated Blood Loss 25 Other: Voiding Method Bedside Commode Indwelling Catheter - Labs CBC & Chem 7: 08/28/23 05:44 08/27/23 08:07 Labs: Abnormal Lab Results - Last 24 Hours (Table) 08/27/23 08/27/23 08/27/23 Range/Units 08:07 10:59 16:12 Lymphocytes # (0.90-5.00) X 10*3/uL Eosinophils # (0.04-0.35) X 10*3/uL POC Glucose (mg/dL) 112 H 114 H (70-110) mg/dL Troponin I 0.363 H* (0.000-0.034) ng/mL 08/27/23 08/27/23 08/28/23 Range/Units 17:11 21:36 00:06 Lymphocytes # (0.90-5.00) X 10*3/uL Eosinophils # (0.04-0.35) X 10*3/uL POC Glucose (mg/dL) 119 H (70-110) mg/dL Troponin I 0.459 H* 0.422 H* (0.000-0.034) ng/mL 08/28/23 Range/Units 05:44 Lymphocytes # 0.76 L (0.90-5.00) X 10*3/uL Eosinophils # 0.01 L (0.04-0.35) X 10*3/uL POC Glucose (mg/dL) (70-110) mg/dL Troponin I (0.000-0.034) ng/mL
--- NOTE | 2023-08-28 11:29 | CA ---
Transthoracic Echo Report Name: Cherrie Chen Age: 73 Gender: F : 1950 Exam Date: 08/28/2023 08:58 Exam Location: [facility] Ht (in): 60 Wt (lb): 150 Ordering Physician: Dewayne Nava Attending/Referring Phys: Marketing Information Analyst Evelyn Delacruz RDCS Procedure CPT: Indications: cardiac clearance for surgery Cardiac Hx: Technical Quality: Fair Contrast 1: Total Dose (mL): Contrast 2: Total Dose (mL): MEASUREMENTS (Male / Female) Normal Values 2D ECHO LV Diastolic Diameter PLAX 3.4 cm 4.2 - 5.9 / 3.9 - 5.3 cm LV Systolic Diameter PLAX 2.6 cm IVS Diastolic Thickness 1.4 cm 0.6 - 1.0 / 0.6 - 0.9 cm LVPW Diastolic Thickness 1.5 cm 0.6 - 1.0 / 0.6 - 0.9 cm LV Relative Wall Thickness 0.9 RV Internal Dim ED PLAX 2.9 cm LA Volume 46.2 cm??? 18 - 58 / 22 - 52 cm??? LA Volume Index 26.9 cm???/m??? 16 - 28 cm???/m??? M-MODE Aortic Root Diameter MM 2.9 cm LA Systolic Diameter MM 5.4 cm LA Ao Ratio MM 1.9 AV Cusp Separation MM 1.7 cm DOPPLER AV Peak Velocity 202.6 cm/s AV Peak Gradient 16.4 mmHg AV Mean Velocity 148.5 cm/s AV Mean Gradient 9.3 mmHg AV Velocity Time Integral 31.1 cm LVOT Peak Velocity 158.6 cm/s LVOT Peak Gradient 10.1 mmHg LVOT Velocity Time Integral 27.5 cm MV Area PHT 3.1 cm??? Mitral E Point Velocity 58.4 cm/s Mitral A Point Velocity 87.5 cm/s Mitral E to A Ratio 0.7 MV Deceleration Time 242.6 ms MV E' Velocity 6.4 cm/s Mitral E to MV E' Ratio 9.1 TR Peak Velocity 233.8 cm/s TR Peak Gradient 21.9 mmHg Right Ventricular Systolic Press 24.7 mmHg FINDINGS Left Ventricle Moderately increased left ventricular wall thickness. Left ventricular cavity size normal. No obvious regional wall motion abnormalities. Left ventricular ejection fraction is estimated at 50-55 %. Right Ventricle Normal right ventricular size and function. Right ventricular systolic pressure within normal limits. Right Atrium Normal right atrial size. Left Atrium Mildly increased left atrial area. Mitral Valve Structurally normal mitral valve. Mitral valve thickened. Mild mitral annular calcification. Mild mitral regurgitation. Aortic Valve Trileaflet aortic valve. Mild aortic stenosis with a peak gradient of 16 mmHg and a mean gradient of 9 mmHg. Tricuspid Valve Structurally normal tricuspid valve. Mild tricuspid regurgitation. Pulmonic Valve Trace pulmonic regurgitation. Pericardium No pericardial effusion. Aorta Normal size aortic root and proximal ascending aorta. CONCLUSIONS Normal LV systolic function Mild aortic stenosis Mild mitral regurgitation Previewed by: Dr. Benjamín Helm MD (Electronically Signed) Final Date: 28 August 2023 11:29
[2023-08-28] MEDS ORDERED: FAMOTIDINE 20 MG/2 ML VIAL IV SCH (11:30)
[2023-08-28 12:00] LABS: Glucose,Whole Blood 94 mg/dL (70-110)
[2023-08-28] MEDS: LACTATED RINGERS 1,000 ML IV SCH ×2 (12:43→22:04)
--- NOTE | 2023-08-28 13:12 | P.PN ---
Subjective Progress Note Date: 08/28/23 HISTORY OF PRESENTING ILLNESS Patient is a pleasant 73-year-old female with history of hypertension, hyper lipidemia, diabetes mellitus type 2 hypothyroidism and strong family history of coronary artery disease who presents secondary to abdominal pain. Patient has been having abdominal pain for the last few days which has worsened and having nausea and throwing up and therefore presents emergency department. She does have right lower abdominal pain and CT abdomen and pelvis showed distal small bowel obstruction with right inguinal hernia containing fat and loop of small bowel and cannot exclude strangulation/incarceration. An NG tube was placed however still having abdominal pain. Blood work shows white blood cell count 14.8, hemoglobin 15.8, sodium 131, glucose 137. She denies any consistent chest pain however will have twinges which lasts for 3-4 seconds not typically with any exertion. She has not consistently walk up stairs however can walk a city block without stopping without any chest pain or shortness breath. She does have chronic dyspnea which she attributes to her age and not been as active. She does have strong family history of multiple brothers as well as both mom and dad dying in their 40s from heart disease as well as some brothers with defibrillators and stents. EKG shows sinus rhythm, intraventricular conduction delay with Q waves V1 and V2, LVH with T-wave inversions V3 through V6, 1 and aVL. There is no comparison. 08/28 Patient is seen today in follow-up on the [facility] floor. Patient is status post open repair of incarcerated right inguinal hernia. Echocardiogram reveals normal LV systolic function. Mild aortic stenosis. Mild mitral regurgitation. Blood pressure 123/67, heart rate is in the 80s and 90s, afebrile, pulse ox 93% on room air. Repeat blood work reveals WBC 8.4, hemoglobin 12.6. Electrolytes within normal limits and creatinine 0.8. PHYSICAL EXAMINATION Vital signs reviewed. CONSTITUTIONAL: No apparent distress. HEENT: Head is normocephalic. Pupils are equal, round. Sclerae anicteric. Mucous membranes of the mouth are moist. No JVD. No carotid bruit. CHEST EXAMINATION: Lungs are clear to auscultation. No chest wall tenderness is noted on palpation or with deep breathing. HEART EXAMINATION: Regular rate and rhythm. S1, S2 heard. No murmurs, gallops or rub. ABDOMEN: Soft, +tender. EXTREMITIES: 2+ peripheral pulses, no lower extremity edema and no calf tenderness. NEUROLOGIC EXAMINATION: Patient is awake, alert and oriented x3. ASSESSMENT 1. Preoperative cardiovascular exam 2. Abnormal EKG 3. Small bowel obstruction, status post open repair of incarcerated right inguinal hernia 08/27 4. SIRS 5. Chronic dyspnea 6. Atypical episodes of chest pain 7. Strong family history of CAD 8. Diabetes mellitus type 2 PLAN No further cardiac workup at this time Patient may follow-up in the office for outpatient stress test. Nurse practitioner note has been reviewed, I agree with the documented findings and plan of care. Patient was seen and examined. Objective - Vital Signs Vital signs: Vital Signs Temp 98.9 F 08/28/23 07:22 Pulse 86 08/28/23 07:22 Resp 16 08/28/23 07:22 BP 123/67 08/28/23 07:22 Pulse Ox 93 L 08/28/23 07:22 FiO2 Intake & Output 08/27/23 08/28/23 08/28/23 18:59 06:59 18:59 Intake Total 2400 Output Total 125 600 Balance 2275 -600 Weight 68.039 kg Intake: IV 1400 Intake, IV Titration 1000 Amount Lactated Ringers 1,000 ml 1000 @ 0 mls/hr IV .[facility] Rx#:[id number] Output: Gastric Drainage 100 Urine 600 Estimated Blood Loss 25 Other: Voiding Method Bedside Commode Indwelling Catheter - Labs CBC & Chem 7: 08/28/23 05:44 08/28/23 06:00 Labs: Abnormal Lab Results - Last 24 Hours (Table) 08/27/23 08/27/23 08/27/23 Range/Units 08:07 16:12 17:11 Lymphocytes # (0.90-5.00) X 10*3/uL Eosinophils # (0.04-0.35) X 10*3/uL BUN/Creatinine Ratio (12.00-20.00) Ratio POC Glucose (mg/dL) 114 H (70-110) mg/dL Hemoglobin A1c (<=6.0) % Troponin I 0.363 H* 0.459 H* (0.000-0.034) ng/mL Total Protein (6.2-8.2) g/dL Albumin (3.8-4.9) g/dL 08/27/23 08/28/23 08/28/23 Range/Units 21:36 00:06 05:44 Lymphocytes # (0.90-5.00) X 10*3/uL Eosinophils # (0.04-0.35) X 10*3/uL BUN/Creatinine Ratio (12.00-20.00) Ratio POC Glucose (mg/dL) 119 H (70-110) mg/dL Hemoglobin A1c 6.1 H (<=6.0) % Troponin I 0.422 H* (0.000-0.034) ng/mL Total Protein (6.2-8.2) g/dL Albumin (3.8-4.9) g/dL 08/28/23 08/28/23 Range/Units 05:44 06:00 Lymphocytes # 0.76 L (0.90-5.00) X 10*3/uL Eosinophils # 0.01 L (0.04-0.35) X 10*3/uL BUN/Creatinine Ratio 28.88 H (12.00-20.00) Ratio POC Glucose (mg/dL) (70-110) mg/dL Hemoglobin A1c (<=6.0) % Troponin I (0.000-0.034) ng/mL Total Protein 5.2 L (6.2-8.2) g/dL Albumin 3.4 L (3.8-4.9) g/dL
[2023-08-28] MEDS: PANTOPRAZOLE 40 MG/10 ML VIAL IVP SCH (14:28)
[2023-08-28 16:54] LABS: Glucose,Whole Blood 77 mg/dL (70-110)
[2023-08-28 20:55] LABS: Glucose,Whole Blood 81 mg/dL (70-110)
[2023-08-28] MEDS: ATORVASTATIN 40 MG TAB PO SCH ×2 (22:04→22:11)
[2023-08-29] LABS: Glucose,Whole Blood 85 mg/dL (70-110)
[2023-08-29] MEDS: HYDROmorphone 1 MG/ML 1 ML SYRINGE IVP PRN ×6 (01:14→21:06)
[2023-08-29] MEDS: INSULIN ASPART (NovoLOG) 100 UNIT/ML VIAL SQ SCH ×6 (03:46→21:22)
[2023-08-29] MEDS: LACTATED RINGERS 1,000 ML IV SCH ×3 (03:58→21:05)
[2023-08-29 04:18] LABS: Glucose,Whole Blood 99 mg/dL (70-110)
[2023-08-29] MEDS: PIPERACILLIN-TAZOBACTAM 3.375 GM in SODIUM CHLORIDE 0.9% 100 ML IVPB SCH ×3 (05:25→21:05)
[2023-08-29] MEDS: LEVOTHYROXINE 50 MCG TAB PO SCH (06:49)
[2023-08-29 08:09] LABS: Glucose,Whole Blood 85 mg/dL (70-110)
[2023-08-29 08:34] LABS: ALT 13 U/L (8-44); AST 22 U/L (13-35); Alkaline Phosphatase 64 U/L (41-126); BUN/Creat Ratio 36.57 Ratio (12.00-20.00); Blood Urea Nitrogen 25.6 mg/dL (9.0-27.0); Calcium 9.1 mg/dL (8.7-10.3); Carbon Dioxide 24.3 mmol/L (21.6-31.8); Chloride 104 mmol/L (96-109); Glucose 87 mg/dL (70-110); Sodium 140 mmol/L (135-145); Total Bilirubin 0.4 mg/dL (0.3-1.2)
[2023-08-29 08:39] LABS: HCT 34.8 % (37.2-46.3); MCH 28.9 pg (27.0-32.0); MCHC 31.6 g/dL (32.0-37.0); MCV 91.3 FL (80.0-97.0); Mean Platelet Volume 10.3 FL (9.5-12.2); NRBC Per 100 WBC 0 X 10*3/uL (0.00-0.01); Platelet Count 300 X 10*3/uL (140-440); RBC 3.81 X 10*6/uL (4.10-5.20); RDW 13.7 % (11.5-14.5); WBC 6.76 X 10*3/uL (4.50-10.00)
[2023-08-29] MEDS: PANTOPRAZOLE 40 MG/10 ML VIAL IVP SCH (09:29)
[2023-08-29] MEDS: ENOXAPARIN 40 MG/0.4 ML SYRINGE SQ SCH (09:29)
[2023-08-29 11:55] LABS: Glucose,Whole Blood 94 mg/dL (70-110)
--- NOTE | 2023-08-29 13:10 | P.PN ---
Subjective Progress Note Date: 08/29/23 HISTORY OF PRESENTING ILLNESS Patient is a pleasant 73-year-old female with history of hypertension, hyper lipidemia, diabetes mellitus type 2 hypothyroidism and strong family history of coronary artery disease who presents secondary to abdominal pain. Patient has been having abdominal pain for the last few days which has worsened and having nausea and throwing up and therefore presents emergency department. She does have right lower abdominal pain and CT abdomen and pelvis showed distal small bowel obstruction with right inguinal hernia containing fat and loop of small bowel and cannot exclude strangulation/incarceration. An NG tube was placed however still having abdominal pain. Blood work shows white blood cell count 14.8, hemoglobin 15.8, sodium 131, glucose 137. She denies any consistent chest pain however will have twinges which lasts for 3-4 seconds not typically with any exertion. She has not consistently walk up stairs however can walk a city block without stopping without any chest pain or shortness breath. She does have chronic dyspnea which she attributes to her age and not been as active. She does have strong family history of multiple brothers as well as both mom and dad dying in their 40s from heart disease as well as some brothers with defibrillators and stents. EKG shows sinus rhythm, intraventricular conduction delay with Q waves V1 and V2, LVH with T-wave inversions V3 through V6, 1 and aVL. There is no comparison. 08/28 Patient is seen today in follow[facility] on the [facility] floor. Patient is status post open repair of incarcerated right inguinal hernia. Echocardiogram reveals normal LV systolic function. Mild aortic stenosis. Mild mitral regurgitation. Blood pressure 123/67, heart rate is in the 80s and 90s, afebrile, pulse ox 93% on room air. Repeat blood work reveals WBC 8.4, hemoglobin 12.6. Electrolytes within normal limits and creatinine 0.8. 08/29 Patient is seen today in follow-up. NG tube is been discontinued. Vital signs are stable. PHYSICAL EXAMINATION Vital signs reviewed. CONSTITUTIONAL: No apparent distress. HEENT: Head is normocephalic. Pupils are equal, round. Sclerae anicteric. Mucous membranes of the mouth are moist. No JVD. No carotid bruit. CHEST EXAMINATION: Lungs are clear to auscultation. No chest wall tenderness is noted on palpation or with deep breathing. HEART EXAMINATION: Regular rate and rhythm. S1, S2 heard. No murmurs, gallops or rub. ABDOMEN: Soft, +tender. EXTREMITIES: 2+ peripheral pulses, no lower extremity edema and no calf tenderness. NEUROLOGIC EXAMINATION: Patient is awake, alert and oriented x3. ASSESSMENT 1. Preoperative cardiovascular exam 2. Abnormal EKG 3. Small bowel obstruction, status post open repair of incarcerated right inguinal hernia 08/27 4. SIRS 5. Chronic dyspnea 6. Atypical episodes of chest pain 7. Strong family history of CAD 8. Diabetes mellitus type 2 PLAN No further cardiac workup at this time Continue current cardiac medications, resume hydrochlorothiazide as patient's blood pressure warrants Patient may follow-up in the office for outpatient stress test. Nurse practitioner note has been reviewed, I agree with the documented findings and plan of care. Patient was seen and examined. Objective - Vital Signs Vital signs: Vital Signs Temp 98.5 F 08/29/23 11:44 Pulse 95 08/29/23 11:44 Resp 16 08/29/23 11:44 BP 110/66 08/29/23 11:44 Pulse Ox 93 L 08/29/23 11:44 FiO2 Intake & Output 08/28/23 08/29/23 08/29/23 18:59 06:59 18:59 Output Total 1100 250 Balance -1100 -250 Output: Gastric Drainage 200 Urine 900 250 Other: Voiding Method Indwelling Catheter Bedside Commode Indwelling Catheter - Labs CBC & Chem 7: 08/29/23 05:45 08/29/23 05:45 Labs: Abnormal Lab Results - Last 24 Hours (Table) 08/29/23 08/29/23 Range/Units 05:45 05:45 RBC 3.81 L (4.10-5.20) X 10*6/uL Hgb 11.0 L (12.0-15.0) g/dL Hct 34.8 L (37.2-46.3) % MCHC 31.6 L (32.0-37.0) g/dL BUN/Creatinine Ratio 36.57 H (12.00-20.00) Ratio Total Protein 5.0 L (6.2-8.2) g/dL Albumin 3.0 L (3.8-4.9) g/dL Albumin/Globulin Ratio 1.50 L (1.60-3.17) Ratio
--- NOTE | 2023-08-29 13:29 | P.PN ---
Subjective Progress Note Date: 08/29/23 CHIEF COMPLAINT: Small bowel obstruction secondary to incarcerated right inguinal hernia HISTORY OF PRESENT ILLNESS: Patient is postop day #2 status post open repair of incarcerated right inguinal hernia with small bowel resection. Patient sitting at bedside chair. This is her first time out of bed. She did have pain with movement. Otherwise pain is controlled. Denies any bowel activity. NG tube with 200 mL output. Afebrile. Patient seen by cardiology. They have signed off. WBC 6.76 hemoglobin 11.0 platelets 300. NG tube accidentally has come out. PHYSICAL EXAM: VITAL SIGNS: Reviewed. GENERAL: Well-developed in no acute distress. ABDOMEN: Soft. Nondistended. Tender incision site. Prevana wound vac intact. NEUROLOGIC: Alert and oriented. Cranial nerves II through XII grossly intact. ASSESSMENT: 1. Small bowel obstruction secondary to incarcerated right inguinal hernia PLAN: -Keep patient nothing by mouth -Continue IV fluids -Continue pain management -Encourage patient to use incentive spirometer -Encourage patient to ambulate -GI prophylaxis Pepcid and DVT prophylaxis Lovenox Physician Dental Laboratory Assistant note has been reviewed by physician. Signing provider agrees with the documented findings, assessment, and plan of care. Objective - Vital Signs Vital signs: Vital Signs Temp 98.5 F 08/29/23 11:44 Pulse 95 08/29/23 11:44 Resp 16 08/29/23 11:44 BP 110/66 08/29/23 11:44 Pulse Ox 93 L 08/29/23 11:44 FiO2 Intake & Output 08/28/23 08/29/23 08/29/23 18:59 06:59 18:59 Output Total 1100 250 Balance -1100 -250 Output: Gastric Drainage 200 Urine 900 250 Other: Voiding Method Indwelling Catheter Bedside Commode Indwelling Catheter - Labs CBC & Chem 7: 08/29/23 05:45 08/29/23 05:45 Labs: Abnormal Lab Results - Last 24 Hours (Table) 08/29/23 08/29/23 Range/Units 05:45 05:45 RBC 3.81 L (4.10-5.20) X 10*6/uL Hgb 11.0 L (12.0-15.0) g/dL Hct 34.8 L (37.2-46.3) % MCHC 31.6 L (32.0-37.0) g/dL BUN/Creatinine Ratio 36.57 H (12.00-20.00) Ratio Total Protein 5.0 L (6.2-8.2) g/dL Albumin 3.0 L (3.8-4.9) g/dL Albumin/Globulin Ratio 1.50 L (1.60-3.17) Ratio
[2023-08-29 14:13] VITALS: BMI 29.2
--- NOTE | 2023-08-29 15:24 | P.PN ---
Subjective Progress Note Date: 08/29/23 (delayed charting seen at 0945) Patient is a 73-year-old female with hypertension, dyslipidemia, nlk-kexjivn-gtlqvqkxj type 2 diabetes, and hypothyroidism who presented to the emergency department secondary to abdominal pain. He was found to have a small bowel obstruction due to right inguinal hernia and subsequently underwent small bowel resection with repair of right inguinal hernia. Patient seen and examined at bedside. She has not yet passed gas. She denies any nausea. She is feeling hungry. She denies any chest pain or shortness of breath. Family present at bedside. All questions answered. Vital signs reviewed General: nontoxic, no distress, appears at stated age Cardiovascular: S1S2 reg, no murmur, positive posterior tibial pulse bilateral, Lungs: CTA bilateral, no rhonchi, no rales , no accessory muscle use Abdominal: soft, tender to palpation diffusely, no guarding, no appreciable organomegaly, nasogastric tube in place Ext: no gross muscle atrophy, no edema b/l lower extremities, no contractures Neuro: CN II-XI grossly intact, no focal neuro deficits Psych: Alert, oriented, appropriate affect Assessment/Plan: SMall bowel obstruction due to incarcerated right inguinal hernia -Status post bowel resection with inguinal hernia repair 08/27/23 -NG tube in place -Zosyn 3.375 g every 8 hours day #4 Diabetes mellitus type II, [id number] -Sliding scale insulin, follow blood sugars, A1c 6.1 -Continue to hold metformin Hypertension Dyslipidemia New-onset left bundle branch block Type II non-STEMI -Cardiology has signed off. They do recommend outpatient follow-up for stress test. -Continue with Lipitor 40 mg at night -Hydrochlorothiazide currently on hold -Follow blood pressures Imaging: None new Data Review: Labs reviewed from today include CBC, basic metabolic profile, magnesium which are remarkable for hemoglobin 11 DVT prophylaxis: Lovenox Thank you for allowing us to participate in the care of this pleasant patient. Do not hesitate to contact us with questions. Someone can be reached from the [facility] hospitalist group all hours of the day at [phone] or via [employer]. This dictation was prepared using [employer] voice recognition software. Though every attempt is made to correct errors during dictation some may still exist. Objective - Vital Signs Vital signs: Vital Signs Temp 99.4 F 08/29/23 13:51 Pulse 84 08/29/23 13:51 Resp 20 08/29/23 13:51 BP 107/67 08/29/23 13:51 Pulse Ox 96 08/29/23 13:51 FiO2 Intake & Output 08/28/23 08/29/23 08/29/23 18:59 06:59 18:59 Output Total 1100 250 Balance -1100 -250 Weight 68.039 kg Output: Gastric Drainage 200 Urine 900 250 Other: Voiding Method Indwelling Catheter Bedside Commode Indwelling Catheter - Labs CBC & Chem 7: 08/29/23 05:45 08/29/23 05:45 Labs: Abnormal Lab Results - Last 24 Hours (Table) 08/29/23 08/29/23 Range/Units 05:45 05:45 RBC 3.81 L (4.10-5.20) X 10*6/uL Hgb 11.0 L (12.0-15.0) g/dL Hct 34.8 L (37.2-46.3) % MCHC 31.6 L (32.0-37.0) g/dL BUN/Creatinine Ratio 36.57 H (12.00-20.00) Ratio Total Protein 5.0 L (6.2-8.2) g/dL Albumin 3.0 L (3.8-4.9) g/dL Albumin/Globulin Ratio 1.50 L (1.60-3.17) Ratio
[2023-08-29 16:26] LABS: Glucose,Whole Blood 93 mg/dL (70-110)
[2023-08-29] MEDS: ATORVASTATIN 40 MG TAB PO SCH (21:05)
[2023-08-29 21:21] LABS: Glucose,Whole Blood 82 mg/dL (70-110)
[2023-08-30 00:10] LABS: Glucose,Whole Blood 99 mg/dL (70-110)
[2023-08-30] MEDS: HYDROmorphone 1 MG/ML 1 ML SYRINGE IVP PRN ×4 (00:48→22:39)
[2023-08-30] MEDS: INSULIN ASPART (NovoLOG) 100 UNIT/ML VIAL SQ SCH ×6 (01:06→20:04)
[2023-08-30 04:06] LABS: Glucose,Whole Blood 99 mg/dL (70-110)
[2023-08-30] MEDS: HYDROmorphone 0.5 MG/0.5 ML SYRINGE IVP PRN (04:50)
[2023-08-30] MEDS: LACTATED RINGERS 1,000 ML IV SCH ×2 (04:50→16:15)
[2023-08-30] MEDS: PIPERACILLIN-TAZOBACTAM 3.375 GM in SODIUM CHLORIDE 0.9% 100 ML IVPB SCH ×3 (04:50→20:09)
[2023-08-30] MEDS: LEVOTHYROXINE 50 MCG TAB PO SCH (06:22)
[2023-08-30 07:55] LABS: Glucose,Whole Blood 86 mg/dL (70-110)
[2023-08-30] MEDS: PANTOPRAZOLE 40 MG/10 ML VIAL IVP SCH (08:02)
[2023-08-30] MEDS: ENOXAPARIN 40 MG/0.4 ML SYRINGE SQ SCH (08:49)
[2023-08-30] MEDS: KETOROLAC 15 MG/ML 1 ML VIAL IVP SCH ×2 (11:23→18:49)
[2023-08-30] MEDS: ZINC OXIDE PASTE (Z-GUARD) 1 APPLIC TOPICAL SCH ×2 (11:24→20:10)
[2023-08-30 12:00] LABS: Glucose,Whole Blood 98 mg/dL (70-110)
--- NOTE | 2023-08-30 12:31 | P.PN ---
Subjective Progress Note Date: 08/30/23 HISTORY OF PRESENTING ILLNESS Patient is a pleasant 73-year-old female with history of hypertension, hyper lipidemia, diabetes mellitus type 2 hypothyroidism and strong family history of coronary artery disease who presents secondary to abdominal pain. Patient has been having abdominal pain for the last few days which has worsened and having nausea and throwing up and therefore presents emergency department. She does have right lower abdominal pain and CT abdomen and pelvis showed distal small bowel obstruction with right inguinal hernia containing fat and loop of small bowel and cannot exclude strangulation/incarceration. An NG tube was placed however still having abdominal pain. Blood work shows white blood cell count 14.8, hemoglobin 15.8, sodium 131, glucose 137. She denies any consistent chest pain however will have twinges which lasts for 3-4 seconds not typically with any exertion. She has not consistently walk up stairs however can walk a city block without stopping without any chest pain or shortness breath. She does have chronic dyspnea which she attributes to her age and not been as active. She does have strong family history of multiple brothers as well as both mom and dad dying in their 40s from heart disease as well as some brothers with defibrillators and stents. EKG shows sinus rhythm, intraventricular conduction delay with Q waves V1 and V2, LVH with T-wave inversions V3 through V6, 1 and aVL. There is no comparison. 08/28 Patient is seen today in follow-up on the [facility] floor. Patient is status post open repair of incarcerated right inguinal hernia. Echocardiogram reveals normal LV systolic function. Mild aortic stenosis. Mild mitral regurgitation. Blood pressure 123/67, heart rate is in the 80s and 90s, afebrile, pulse ox 93% on room air. Repeat blood work reveals WBC 8.4, hemoglobin 12.6. Electrolytes within normal limits and creatinine 0.8. 08/29 Patient is seen today in follow-up. NG tube is been discontinued. Vital signs are stable. 08/30 Patient is seen today in follow-up. She is postop day #3. Heart rate is in the 70s, blood pressure 125/65, pulse ox 95% on 3 L nasal cannula. Patient is not passing gas. Plan is to ambulate. PHYSICAL EXAMINATION Vital signs reviewed. CONSTITUTIONAL: No apparent distress. HEENT: Head is normocephalic. Pupils are equal, round. Sclerae anicteric. Mucous membranes of the mouth are moist. No JVD. No carotid bruit. CHEST EXAMINATION: Lungs are clear to auscultation. No chest wall tenderness is noted on palpation or with deep breathing. HEART EXAMINATION: Regular rate and rhythm. S1, S2 heard. No murmurs, gallops or rub. ABDOMEN: Soft, +tender. EXTREMITIES: 2+ peripheral pulses, no lower extremity edema and no calf tenderness. NEUROLOGIC EXAMINATION: Patient is awake, alert and oriented x3. ASSESSMENT 1. Preoperative cardiovascular exam 2. Abnormal EKG 3. Small bowel obstruction, status post open repair of incarcerated right inguinal hernia with small bowel resection 08/27 4. SIRS 5. Chronic dyspnea 6. Atypical episodes of chest pain 7. Strong family history of CAD 8. Diabetes mellitus type 2 PLAN No further cardiac workup at this time Continue current cardiac medications, resume hydrochlorothiazide as patient's blood pressure warrants Patient may follow-up in the office for outpatient stress test. Cardiology will sign off this case and follow on an as-needed basis. Please reconsult for any new concerns. Nurse practitioner note has been reviewed, I agree with the documented findings and plan of care. Patient was seen and examined. Objective - Vital Signs Vital signs: Vital Signs Temp 97.5 F L 08/30/23 07:45 Pulse 74 08/30/23 07:45 Resp 14 08/30/23 07:45 BP 125/65 08/30/23 07:45 Pulse Ox 95 08/30/23 07:45 FiO2 Intake & Output 08/29/23 08/30/23 08/30/23 18:59 06:59 18:59 Output Total 400 Balance -400 Weight 68.039 kg Output: Urine 400 Uretheral (Mendoza) 400 Other: Voiding Method Indwelling Catheter Indwelling Catheter # Voids 0 - Labs CBC & Chem 7: 08/29/23 05:45 08/29/23 05:45
--- NOTE | 2023-08-30 15:22 | P.PN ---
Subjective Progress Note Date: 08/30/23 (delayed charting seen at 0930) Patient is a 73-year-old female with hypertension, dyslipidemia, ghr-pvnidzd-xpnbqwrwq type 2 diabetes, and hypothyroidism who presented to the emergency department secondary to abdominal pain. He was found to have a small bowel obstruction due to right inguinal hernia and subsequently underwent small bowel resection with repair of right inguinal hernia. Patient seen and examined at bedside. She is feeling hungry today. She did have some nausea when getting to the chair. She has not passed any gas or had a bowel movement. Vital signs reviewed General: nontoxic, no distress, appears at stated age Cardiovascular: S1S2 reg, no murmur, positive posterior tibial pulse bilateral, Lungs: CTA bilateral, no rhonchi, no rales , no accessory muscle use Abdominal: soft, tender to palpation diffusely, no guarding, no appreciable organomegaly, nasogastric tube in place Ext: no gross muscle atrophy, no edema b/l lower extremities, no contractures Neuro: CN II-XI grossly intact, no focal neuro deficits Psych: Alert, oriented, appropriate affect Assessment/Plan: Small bowel obstruction due to incarcerated right inguinal hernia -Status post bowel resection with inguinal hernia repair 08/27/23 -NG tube in place -Zosyn 3.375 g every 8 hours day #5 Diabetes mellitus type II, pbn-cquobkl-cadaojiev -Sliding scale insulin, follow blood sugars, A1c 6.1 -Continue to hold metformin Stage II pressure ulcer, Left buttock - Z-guard and optifoam. Hypertension Dyslipidemia New-onset left bundle branch block Type II non-STEMI -Cardiology has signed off. They do recommend outpatient follow-up for stress test. -Continue with Lipitor 40 mg at night -Hydrochlorothiazide currently on hold -Follow blood pressures Imaging: None new Data Review: Afebrile for the last 24 hours Blood sugars reviewed and showed been ranging in the 80s to 90s DVT prophylaxis: Lovenox Thank you for allowing us to participate in the care of this pleasant patient. Do not hesitate to contact us with questions. Someone can be reached from the [facility] hospitalist group all hours of the day at [phone] or via perfect serve. This dictation was prepared using [employer] voice recognition software. Though every attempt is made to correct errors during dictation some may still exist. Objective - Vital Signs Vital signs: Vital Signs Temp 97.8 F 08/30/23 13:35 Pulse 63 08/30/23 13:35 Resp 16 08/30/23 13:35 BP 121/66 08/30/23 13:35 Pulse Ox 99 08/30/23 13:35 FiO2 Intake & Output 08/29/23 08/30/23 08/30/23 18:59 06:59 18:59 Output Total 400 Balance -400 Weight 68.039 kg Output: Urine 400 Uretheral (Mendoza) 400 Other: Voiding Method Indwelling Catheter Indwelling Catheter Indwelling Catheter # Voids 0 - Labs CBC & Chem 7: 08/29/23 05:45 08/29/23 05:45
--- NOTE | 2023-08-30 15:56 | P.PN ---
Subjective Progress Note Date: 08/30/23 CHIEF COMPLAINT: Small bowel obstruction secondary to incarcerated right inguinal hernia HISTORY OF PRESENT ILLNESS: Patient is postop day #3 status post open repair of incarcerated right inguinal hernia with small bowel resection. Patient sitting at bedside chair. Patient axilla pulled her NG tube out yesterday. She has been up to ambulate to the hallway and back. For catheter removed yesterday. Patient did have evidence or urinary retention Mendoza catheter had to be reinserted. Per nursing staff patient does have a stage II ulcer on her buttocks. Patient denies any nausea vomiting. She does complain of abdominal pain and has been requiring the IV Dilaudid. Afebrile. PHYSICAL EXAM: VITAL SIGNS: Reviewed. GENERAL: Well-developed in no acute distress. ABDOMEN: Soft. Nondistended. Tender incision site. Prevana wound vac intact. NEUROLOGIC: Alert and oriented. Cranial nerves II through XII grossly intact. ASSESSMENT: 1. Small bowel obstruction secondary to incarcerated right inguinal hernia PLAN: -Keep patient nothing by mouth except for ice chips and popsicles -Continue IV fluids -Continue pain management. Toradol added for pain control -Encourage patient to use incentive spirometer -Encourage patient to ambulate -GI prophylaxis Pepcid and DVT prophylaxis Lovenox Physician Finish Molder note has been reviewed by physician. Signing provider agrees with the documented findings, assessment, and plan of care. Objective - Vital Signs Vital signs: Vital Signs Temp 97.5 F L 08/30/23 07:45 Pulse 74 08/30/23 07:45 Resp 14 08/30/23 07:45 BP 125/65 08/30/23 07:45 Pulse Ox 95 08/30/23 07:45 FiO2 Intake & Output 08/29/23 08/30/23 08/30/23 18:59 06:59 18:59 Output Total 400 Balance -400 Weight 68.039 kg Output: Urine 400 Uretheral (Mendoza) 400 Other: Voiding Method Indwelling Catheter Indwelling Catheter Indwelling Catheter # Voids 0 - Labs CBC & Chem 7: 08/29/23 05:45 08/29/23 05:45
[2023-08-30 16:12] LABS: Glucose,Whole Blood 189 mg/dL (70-110)
[2023-08-30 20:05] LABS: Glucose,Whole Blood 102 mg/dL (70-110)
[2023-08-30] MEDS: ATORVASTATIN 40 MG TAB PO SCH (20:09)
[2023-08-31] MEDS: INSULIN ASPART (NovoLOG) 100 UNIT/ML VIAL SQ SCH ×7 (00:22→23:56)
[2023-08-31] MEDS: KETOROLAC 15 MG/ML 1 ML VIAL IVP SCH ×5 (00:23→23:56)
[2023-08-31 00:24] LABS: Glucose,Whole Blood 97 mg/dL (70-110)
[2023-08-31] MEDS: PIPERACILLIN-TAZOBACTAM 3.375 GM in SODIUM CHLORIDE 0.9% 100 ML IVPB SCH ×3 (03:53→19:11)
[2023-08-31] MEDS: LACTATED RINGERS 1,000 ML IV SCH (03:54)
[2023-08-31 03:57] LABS: Glucose,Whole Blood 82 mg/dL (70-110)
[2023-08-31] MEDS: LEVOTHYROXINE 50 MCG TAB PO SCH (05:15)
[2023-08-31] MEDS: HYDROmorphone 1 MG/ML 1 ML SYRINGE IVP PRN ×4 (06:05→20:41)
[2023-08-31 06:09] LABS: HCT 31.8 % (34.0-46.0); MCV 90.9 fL (80.0-100.0); Mean Platelet Volume 7.2; Platelet Count 297 k/uL (150-450); RDW 13.3 % (11.5-15.5); WBC 6.5 k/uL (3.8-10.6)
[2023-08-31 06:24] LABS: HGB 10.5 gm/dL (11.4-16.0)
[2023-08-31 06:38] LABS: African American GFR (CKD) >90 (>60 ml/min/1.73 sqM); Anion Gap 10 mmol/L; Blood Urea Nitrogen 29 mg/dL (7-17); Calcium 8.9 mg/dL (8.4-10.2); Carbon Dioxide 25 mmol/L (22-30); Chloride 105 mmol/L (98-107); Glucose 76 mg/dL (74-99); Non-African American GFR(CKD) >90 (>60 ml/min/1.73 sqM); Potassium 3.6 mmol/L (3.5-5.1); Sodium 140 mmol/L (137-145)
[2023-08-31 07:37] LABS: Glucose,Whole Blood 76 mg/dL (70-110)
[2023-08-31] MEDS: ZINC OXIDE PASTE (Z-GUARD) 1 APPLIC TOPICAL SCH ×2 (09:09→19:12)
[2023-08-31] MEDS: PANTOPRAZOLE 40 MG/10 ML VIAL IVP SCH (09:09)
[2023-08-31] MEDS: ENOXAPARIN 40 MG/0.4 ML SYRINGE SQ SCH (09:10)
--- NOTE | 2023-08-31 12:01 | P.PN ---
Subjective Progress Note Date: 08/31/23 CHIEF COMPLAINT: Small bowel obstruction secondary to incarcerated right inguinal hernia HISTORY OF PRESENT ILLNESS: Patient is postop day #4 status post open repair of incarcerated right inguinal hernia with small bowel resection. Patient lying in bed comfortably. Pain controlled. Still no flatus or bowel movement. Denies any nausea or vomiting. Low-grade temp 99.9 this a.m. WBC 6.5 Hgb 10.5 PHYSICAL EXAM: VITAL SIGNS: Reviewed. GENERAL: Well-developed in no acute distress. ABDOMEN: Soft. Nondistended. Tender incision site. Prevana wound vac intact. NEUROLOGIC: Alert and oriented. Cranial nerves II through XII grossly intact. ASSESSMENT: 1. Small bowel obstruction secondary to incarcerated right inguinal hernia 2. Urinary retention with Mendoza catheter placed PLAN: -Advance diet to full liquids. Add ensure clear for protein supplements -Encourage patient to increase activity level -Continue IV fluids at 50ml/hr -Continue pain management -Encourage patient to use incentive spirometer -Encourage patient to ambulate -GI prophylaxis Pepcid and DVT prophylaxis Lovenox Physician Coyote Hunter note has been reviewed by physician. Signing provider agrees with the documented findings, assessment, and plan of care. Objective - Vital Signs Vital signs: Vital Signs Temp 99.9 F H 08/31/23 07:30 Pulse 60 08/31/23 07:30 Resp 16 08/31/23 07:30 BP 110/54 08/31/23 07:30 Pulse Ox 96 08/31/23 07:30 FiO2 Intake & Output 08/30/23 08/31/23 08/31/23 18:59 06:59 18:59 Intake Total 800 Output Total 300 350 Balance -300 450 Intake: Intake, IV Titration 800 Amount Lactated Ringers 1,000 ml 600 @ 50 mls/hr IV .Q20H MAYLIN Rx#:[id number] Piperacillin-Tazobactam 3 200 .375 gm In Sodium Chloride 0.9% 100 ml @ 25 mls/hr IVPB Q8H MAYLIN Rx#: [id number] Output: Urine 300 350 Other: Voiding Method Indwelling Catheter Indwelling Catheter Indwelling Catheter - Labs CBC & Chem 7: 08/31/23 05:56 08/31/23 05:56 Labs: Abnormal Lab Results - Last 24 Hours (Table) 08/30/23 08/31/23 08/31/23 Range/Units 16:10 05:56 05:56 RBC 3.50 L (3.80-5.40) m/uL Hgb 10.5 L D (11.4-16.0) gm/dL Hct 31.8 L (34.0-46.0) % BUN 29 H (7-17) mg/dL POC Glucose (mg/dL) 189 H (70-110) mg/dL
[2023-08-31 12:10] LABS: Glucose,Whole Blood 105 mg/dL (70-110)
[2023-08-31 16:02] LABS: Glucose,Whole Blood 144 mg/dL (70-110)
[2023-08-31] MEDS: ONDANSETRON 4 MG/2 ML VIAL IVP PRN (16:18)
--- NOTE | 2023-08-31 17:26 | P.PN ---
Subjective Progress Note Date: 08/31/23 (delayed charting seen at 0905) Patient is a 73-year-old female with hypertension, dyslipidemia, bxu-vurtshp-upwqqxvty type 2 diabetes, and hypothyroidism who presented to the emergency department secondary to abdominal pain. He was found to have a small bowel obstruction due to right inguinal hernia and subsequently underwent small bowel resection with repair of right inguinal hernia. Patient seen and examined at bedside. She is still not had a bowel movement or passed any flatus. She denies any nausea or vomiting. We discussed continuing to stay active, using her IS and she is in agreement. Vital signs reviewed General: nontoxic, no distress, appears at stated age Cardiovascular: S1S2 reg, no murmur, positive posterior tibial pulse bilateral, Lungs: Decreased bs bilateral, no rhonchi, no rales , no accessory muscle use Abdominal: soft, tender to palpation diffusely, no guarding, no appreciable organomegaly Ext: no gross muscle atrophy, no edema b/l lower extremities, no contractures Neuro: CN II-XI grossly intact, no focal neuro deficits Psych: Alert, oriented, appropriate affect Assessment/Plan: Small bowel obstruction due to incarcerated right inguinal hernia -Status post bowel resection with inguinal hernia repair 08/27/23 -Surgery note reviewed: Advance to full liquid diet, add ensure for protein supplement. -Zosyn 3.375 g every 8 hours day #6 Urinary retention -Likely multifactorial. Mendoza catheter had recently replaced on the morning of 08/30/23. Diabetes mellitus type II, [id number]-qksrkjwnh -Sliding scale insulin, follow blood sugars, A1c 6.1 -Continue to hold metformin Acute blood loss anemia, anticipated outcome of surgery -Follow CBC -No indication for transfusion at this time Stage II pressure ulcer, Left buttock - Z-guard and optifoam. Hypertension Dyslipidemia New-onset left bundle branch block Type II non-STEMI -Cardiology has signed off. They do recommend outpatient follow-up for stress test. -Continue with Lipitor 40 mg at night -Hydrochlorothiazide currently on hold -Follow blood pressures Imaging: None new Data Review: Afebrile for the last 24 hours, T max 99.9 Labs reviewed from today include CBC and basic metabolic profile which are remarkable for hemoglobin 10.5 and BUN 29. DVT prophylaxis: [id number] Thank you for allowing us to participate in the care of this pleasant patient. Do not hesitate to contact us with questions. Someone can be reached from the [facility] hospitalist group all hours of the day at [phone] or via perfect serve. This dictation was prepared using [employer] voice recognition software. Though every attempt is made to correct errors during dictation some may still exist. Objective - Vital Signs Vital signs: Vital Signs Temp 97.9 F 08/31/23 12:05 Pulse 75 08/31/23 12:05 Resp 16 08/31/23 12:05 BP 102/59 08/31/23 12:05 Pulse Ox 92 L 08/31/23 15:28 FiO2 Intake & Output 08/30/23 08/31/23 08/31/23 18:59 06:59 18:59 Intake Total 800 Output Total 300 350 Balance -300 450 Weight 68.039 kg Intake: Intake, IV Titration 800 Amount Lactated Ringers 1,000 ml 600 @ 50 mls/hr IV .Q20H [facility]LIN Rx#:[id number] Piperacillin-Tazobactam 3 200 .375 gm In Sodium Chloride 0.9% 100 ml @ 25 mls/hr IVPB Q8H [facility]LIN Rx#: [id number] Output: Urine 300 350 Other: Voiding Method Indwelling Catheter Indwelling Catheter Indwelling Catheter - Labs CBC & Chem 7: 08/31/23 05:56 08/31/23 05:56 Labs: Abnormal Lab Results - Last 24 Hours (Table) 08/31/23 08/31/23 08/31/23 Range/Units 05:56 05:56 16:00 RBC 3.50 L (3.80-5.40) m/uL Hgb 10.5 L D (11.4-16.0) gm/dL Hct 31.8 L (34.0-46.0) % BUN 29 H (7-17) mg/dL POC Glucose (mg/dL) 144 H (70-110) mg/dL
[2023-08-31] MEDS: ATORVASTATIN 40 MG TAB PO SCH (19:11)
[2023-08-31 20:44] LABS: Glucose,Whole Blood 156 mg/dL (70-110)
[2023-08-31 23:56] LABS: Glucose,Whole Blood 118 mg/dL (70-110)
[2023-09-01] MEDS: LACTATED RINGERS 1,000 ML IV SCH ×2 (01:09→22:07)
[2023-09-01] MEDS: HYDROmorphone 1 MG/ML 1 ML SYRINGE IVP PRN ×3 (01:14→12:48)
[2023-09-01] MEDS: PIPERACILLIN-TAZOBACTAM 3.375 GM in SODIUM CHLORIDE 0.9% 100 ML IVPB SCH ×3 (04:08→19:49)
[2023-09-01 04:17] LABS: Glucose,Whole Blood 122 mg/dL (70-110)
[2023-09-01] MEDS: INSULIN ASPART (NovoLOG) 100 UNIT/ML VIAL SQ SCH ×5 (04:20→19:57)
[2023-09-01] MEDS: KETOROLAC 15 MG/ML 1 ML VIAL IVP SCH ×4 (05:19→23:49)
[2023-09-01] MEDS: LEVOTHYROXINE 50 MCG TAB PO SCH (05:19)
[2023-09-01 08:07] LABS: Glucose,Whole Blood 117 mg/dL (70-110)
[2023-09-01] MEDS: PANTOPRAZOLE 40 MG/10 ML VIAL IVP SCH (08:20)
[2023-09-01] MEDS: ENOXAPARIN 40 MG/0.4 ML SYRINGE SQ SCH (08:20)
[2023-09-01] MEDS: ZINC OXIDE PASTE (Z-GUARD) 1 APPLIC TOPICAL SCH ×2 (08:21→20:38)
[2023-09-01 09:39] LABS: HGB 11.9 gm/dL (11.4-16.0); MCH 29.2 pg (25.0-35.0); MCHC 32.1 g/dL (31.0-37.0); MCV 90.9 fL (80.0-100.0); Mean Platelet Volume 8.5; Platelet Count 382 k/uL (150-450); RBC 4.07 m/uL (3.80-5.40); RDW 13.6 % (11.5-15.5); WBC 8.7 k/uL (3.8-10.6)
[2023-09-01 10:28] LABS: African American GFR (CKD) >90 (>60 ml/min/1.73 sqM); Anion Gap 9 mmol/L; Blood Urea Nitrogen 29 mg/dL (7-17); Calcium 9.4 mg/dL (8.4-10.2); Carbon Dioxide 27 mmol/L (22-30); Chloride 104 mmol/L (98-107); Glucose 106 mg/dL (74-99); Non-African American GFR(CKD) >90 (>60 ml/min/1.73 sqM); Potassium 3.8 mmol/L (3.5-5.1); Sodium 140 mmol/L (137-145)
[2023-09-01 13:04] LABS: Glucose,Whole Blood 134 mg/dL (70-110)
[2023-09-01] MEDS: ONDANSETRON 4 MG/2 ML VIAL IVP PRN ×2 (13:06→19:47)
--- NOTE | 2023-09-01 17:20 | P.PN ---
Subjective Progress Note Date: 09/01/23 History of Presenting Illness: Patient is a very pleasant 73-year-old female with a past medical history of hypertension, hyperlipidemia, type II rul-gphsnyx-otqrkftit diabetes mellitus and hypothyroidism. She presented to the emergency department on 08/26/23 secondary to complaints of abdominal pain with intractable nausea and vomiting. She underwent full evaluation in the emergency department. Labs completed and reviewed. CBC showing leukocytosis with WBC count of 14.8, coagulation profile normal findings, BMP showing mild hyponatremia with sodium 131, hypochloremia with chloride 87, hypercarbia with bicarb of 31 and elevated anion gap at 13. Liver profile normal findings. Urinalysis contaminated specimen not concerning for infection. CT abdomen and pelvis completed showing distal small bowel obstruction caused by moderate sized right inguinal hernia containing fat concerning for incarcerated hernia, multiple colonic diverticula, and cholelithiasis. EKG showing sinus rhythm 71 bpm with an incomplete bundle branch block and diffuse T-wave inversion in leads 1, 2, aVL, aVF, and leads V2 through V6 upon personal review and interpretation. No previous EKGs available for comparison. Patient was found to have a small bowel obstruction with incarcerated hernia. Patient was admitted under Gen. surgery team and we were consulted this morning for medical management and evaluation of this patient. Patient underwent urgent open repair of incarcerated right inguinal hernia with small bowel resection on 08/27/23. Physical exam: Patient seen and fully evaluated at bedside this morning. Patient is postoperative day 5. Patient appears to be doing well she was sitting up in the chair at bedside. She is tolerating full liquid diet. Patient stated she does not like ensure as she feels it is too sweet and requesting per meter protein, orders placed for changing of protein supplements per patient's request at this time. Patient reports passing flatus, denies bowel movement and denies any episodes of nausea or vomiting. Vital signs reviewed and stable. General: Nontoxic, no distress and appears stated age. Derm: Skin warm and dry, normal coloration for ethnicity. Head: Atraumatic, normocephalic and symmetric. Eyes: EOMs intact, no lid lag, and anicteric sclera Mouth: no lip lesions, mucus membranes moist Cardiovascular: regular rate and rhythm with normal S1S2, systolic murmur, positive posterior tibial pulses bilaterally, and cap refill < 2 seconds. Lungs: Respirations even, regular, and unlabored on room air. Lungs CTA bilaterally, no rhonchi, no rales, no wheezing, and no accessory muscle usage. Abdominal: Vertical incision just lateral to umbilicus to right side of abdomen. Dressing clean, dry, and intact. Mendoza catheter in place. Ext: ROM intact. No gross muscle atrophy, no edema, no contractures Neuro: Speech clear, face symmetrical and CN II-XII grossly intact with no noted focal neuro deficits Psych: Alert and oriented to person, place, time, and situation. Appropriate and pleasant affect. Assessment and Plan of Care: Small bowel obstruction with incarcerated hernia Status post open repair of incarcerated right inguinal hernia with small bowel resection 08/27/23 -Continue Zosyn 3.375 g every 8 hours day #7 -Management per primary admitting general surgery team including wound/dressing care, pain management, DVT prophylaxis, and advancement of diet. -Patient currently on full liquid diet and per patient's request ensure was discontinued and patient placed on Premeire protein 3 times daily between meals for added protein/nutrition. -DVT prophylaxis with Lovenox. Urinary retention -Likely multifactorial, Mendoza catheter was reinserted on 08/30/23 Stage III pressure ulcer left buttocks -Z-Guard and OptiForm -Turn every 2 hours to offload pressure Acute postsurgical blood loss anemia, anticipated and expected outcome of surgery -Hemoglobin stable at 11.9, no need for transfusion or any other interventions at this time. Elevated troponins, type II NSTEMI New-onset left bundle branch block -Cardiology evaluated in signing off at this time pending recovery from current surgery, cardiology recommending outpatient follow-up for stress testing. -Patient to continue with Lipitor 40 mg nightly -Continue to hold hydrochlorothiazide at this time. Hypertension Hyperlipidemia -Patient to continue daily medication regimen with atorvastatin 40 mg nightly. Will hold hydrochlorothiazide as patient is currently nothing by mouth pending surgical procedure and on gentle IV fluid hydration. Type II hsq-yqytvqj-eakiysokv diabetes mellitus -Hold metformin and place patient on glycemic protocol with NovoLog sliding scale to maintain tight glycemic control throughout hospitalization. Hypothyroidism -Patient to continue daily medication regimen with levothyroxine 50 g daily. Data and imaging reviewed: Morning labs reviewed. CBC unremarkable and BMP revealing mild prerenal azotemia with BUN of 29 otherwise normal findings. Blood glucose 106. Vital signs reviewed. Blood pressure 129/87, heart rate 71, respiratory rate 18, temp 97.9F, and SpO2 of 97% on 2 L O2. Thank you for allowing us to participate in the care of this pleasant patient. Do not hesitate to contact us with questions. Someone can be reached from the [facility] hospitalist group all hours of the day at [phone] or via perfect serve. Patient was seen independently by Nurse Practitioner. This document was prepared using [employer] dictation software. Please allow for errors in interior design program chair while rare they do occur. Objective - Vital Signs Vital signs: Vital Signs Temp 97.9 F 09/01/23 01:18 Pulse 71 09/01/23 08:00 Resp 18 09/01/23 08:00 BP 129/87 09/01/23 08:00 Pulse Ox 97 09/01/23 08:00 FiO2 Intake & Output 08/31/23 09/01/23 09/01/23 18:59 06:59 18:59 Intake Total 600 700 Output Total 300 300 Balance 300 400 Weight 68.039 kg Intake: Intake, IV Titration 600 700 Amount Lactated Ringers 1,000 ml 600 600 @ 50 mls/hr IV .Q20H [facility] Rx#:[id number] Piperacillin-Tazobactam 3 100 .375 gm In Sodium Chloride 0.9% 100 ml @ 25 mls/hr IVPB Q8H [facility] Rx#: [id number] Output: Urine 300 300 Other: Voiding Method Indwelling Catheter Indwelling Catheter # Voids 0 - Labs CBC & Chem 7: 09/01/23 07:46 09/01/23 07:46 Labs: Abnormal Lab Results - Last 24 Hours (Table) 08/31/23 08/31/23 08/31/23 Range/Units 16:00 20:43 23:55 POC Glucose (mg/dL) 144 H 156 H 118 H (70-110) mg/dL 09/01/23 09/01/23 Range/Units 04:15 08:05 POC Glucose (mg/dL) 122 H 117 H (70-110) mg/dL
[2023-09-01 17:32] LABS: Glucose,Whole Blood 116 mg/dL (70-110)
--- NOTE | 2023-09-01 18:52 | P.PN ---
Subjective Progress Note Date: 09/01/23 Principal diagnosis: Incarcerated right inguinal hernia, necessitating small bowel resection Patient resting quietly, states she has passed a small amount of flatus today, notes some nausea but no emesis, no fever or chills has been up to chair but not ambulating. Objective - Vital Signs Vital signs: Vital Signs Temp 97.7 F 09/01/23 12:43 Pulse 71 09/01/23 12:43 Resp 17 09/01/23 12:43 BP 151/85 09/01/23 12:43 Pulse Ox 94 L 09/01/23 12:43 FiO2 Intake & Output 08/31/23 09/01/23 09/01/23 18:59 06:59 18:59 Intake Total 600 700 620 Output Total 300 300 300 Balance 300 400 320 Weight 68.039 kg Intake: Intake, IV Titration 600 700 Amount Lactated Ringers 1,000 ml 600 600 @ 50 mls/hr IV .Q20H [facility] Rx#:[id number] Piperacillin-Tazobactam 3 100 .375 gm In Sodium Chloride 0.9% 100 ml @ 25 mls/hr IVPB Q8H [facility] Rx#: [id number] Oral 620 Output: Urine 300 300 300 Uretheral (Mendoza) 300 Other: Voiding Method Indwelling Catheter Indwelling Catheter Indwelling Catheter # Voids 0 - Constitutional General appearance: Present: no acute distress - EENT Eyes: Present: PERRLA - Respiratory Respiratory: bilateral: CTA - Cardiovascular Rhythm: regular - Gastrointestinal Gastrointestinal Comment(s): Protuberant, wound VAC dressings dry and intact, mildly tender diffuse pattern. - Neurologic Neurologic Comment(s): Awake and alert, orientated 3, appropriate affect - Labs CBC & Chem 7: 09/01/23 07:46 09/01/23 07:46 Labs: Abnormal Lab Results - Last 24 Hours (Table) 08/31/23 08/31/23 09/01/23 Range/Units 20:43 23:55 04:15 BUN (7-17) mg/dL Glucose (74-99) mg/dL POC Glucose (mg/dL) 156 H 118 H 122 H (70-110) mg/dL 09/01/23 09/01/23 09/01/23 Range/Units 07:46 08:05 13:02 BUN 29 H (7-17) mg/dL Glucose 106 H (74-99) mg/dL POC Glucose (mg/dL) 117 H 134 H (70-110) mg/dL 09/01/23 Range/Units 17:15 BUN (7-17) mg/dL Glucose (74-99) mg/dL POC Glucose (mg/dL) 116 H (70-110) mg/dL Assessment and Plan Assessment: 73-year-old female postop day 5 laparotomy for small bowel resection, right inguinal hernia repair Ileus, resolving slowly Continue medical supportive care, encourage up out of bed, pulmonary toilet, tap er opioids as able Continue PT OT, DC Mendoza when able Time with Patient: Less than 30
[2023-09-01] MEDS: DOCUSATE 100 MG CAP PO PRN (19:47)
[2023-09-01] MEDS: ATORVASTATIN 40 MG TAB PO SCH (19:47)
[2023-09-01 20:06] LABS: Glucose,Whole Blood 105 mg/dL (70-110)
[2023-09-01] MEDS: HYDROmorphone 0.5 MG/0.5 ML SYRINGE IVP PRN (20:18)
[2023-09-02 00:03] LABS: Glucose,Whole Blood 100 mg/dL (70-110)
[2023-09-02] MEDS: INSULIN ASPART (NovoLOG) 100 UNIT/ML VIAL SQ SCH ×6 (00:21→21:01)
[2023-09-02] MEDS: HYDROmorphone 0.5 MG/0.5 ML SYRINGE IVP PRN ×3 (02:22→20:29)
[2023-09-02] MEDS: ONDANSETRON 4 MG/2 ML VIAL IVP PRN (02:22)
[2023-09-02] MEDS: PIPERACILLIN-TAZOBACTAM 3.375 GM in SODIUM CHLORIDE 0.9% 100 ML IVPB SCH ×3 (03:39→20:09)
[2023-09-02 05:13] LABS: Glucose,Whole Blood 110 mg/dL (70-110)
[2023-09-02] MEDS: KETOROLAC 15 MG/ML 1 ML VIAL IVP SCH ×4 (05:44→23:47)
[2023-09-02] MEDS: LEVOTHYROXINE 50 MCG TAB PO SCH (05:44)
[2023-09-02 07:47] LABS: Glucose,Whole Blood 102 mg/dL (70-110)
[2023-09-02] MEDS: PANTOPRAZOLE 40 MG/10 ML VIAL IVP SCH (09:00)
[2023-09-02] MEDS: ENOXAPARIN 40 MG/0.4 ML SYRINGE SQ SCH (09:14)
[2023-09-02] MEDS: DOCUSATE 100 MG CAP PO PRN ×2 (09:14→20:08)
[2023-09-02] MEDS: ZINC OXIDE PASTE (Z-GUARD) 1 APPLIC TOPICAL SCH ×2 (09:18→20:09)
[2023-09-02 11:58] LABS: Glucose,Whole Blood 106 mg/dL (70-110)
--- NOTE | 2023-09-02 14:44 | P.PN ---
Subjective Progress Note Date: 09/02/23 She reports nausea from high salt and high sugar diet. She has been on modified diet for 1 year. She is passing flatus. No bowel movements. Abdomen better today that yesterday. She reports mild abdominal gas bloat. Start consistent carb diet with low sugar, low salt. Dietitian consulted. Simethicone scheduled and zofran scheduled prescribed. Objective - Vital Signs Vital signs: Vital Signs Temp 98.3 F 09/02/23 12:00 Pulse 66 09/02/23 12:00 Resp 17 09/02/23 12:00 BP 135/81 09/02/23 12:00 Pulse Ox 92 L 09/02/23 12:00 FiO2 Intake & Output 09/01/23 09/02/23 09/02/23 18:59 06:59 18:59 Intake Total 620 590 Output Total 300 400 Balance 320 190 Intake: Oral 620 590 Output: Urine 300 400 Uretheral (Mendoza) 300 Other: Voiding Method Indwelling Catheter Indwelling Catheter Indwelling Catheter - Labs CBC & Chem 7: 09/01/23 07:46 09/01/23 07:46 Labs: Abnormal Lab Results - Last 24 Hours (Table) 09/01/23 Range/Units 17:15 POC Glucose (mg/dL) 116 H (70-110) mg/dL
[2023-09-02] MEDS: ONDANSETRON 4 MG/2 ML VIAL IVP SCH ×3 (15:33→23:47)
[2023-09-02] MEDS: SIMETHICONE 40 MG/0.6 ML DROPS 2,000 MG/30 ML BOTTLE PO SCH ×3 (16:53→22:16)
--- NOTE | 2023-09-02 17:24 | P.PN ---
Subjective Progress Note Date: 09/02/23 History of Presenting Illness: Patient is a very pleasant 73-year-old female with a past medical history of hypertension, hyperlipidemia, type II ito-ctdlemd-coxvwnmpk diabetes mellitus and hypothyroidism. She presented to the emergency department on 08/26/23 secondary to complaints of abdominal pain with intractable nausea and vomiting. She underwent full evaluation in the emergency department. Labs completed and reviewed. CBC showing leukocytosis with WBC count of 14.8, coagulation profile normal findings, BMP showing mild hyponatremia with sodium 131, hypochloremia with chloride 87, hypercarbia with bicarb of 31 and elevated anion gap at 13. Liver profile normal findings. Urinalysis contaminated specimen not concerning for infection. CT abdomen and pelvis completed showing distal small bowel obstruction caused by moderate sized right inguinal hernia containing fat concerning for incarcerated hernia, multiple colonic diverticula, and cholelithiasis. EKG showing sinus rhythm 71 bpm with an incomplete bundle branch block and diffuse T-wave inversion in leads 1, 2, aVL, aVF, and leads V2 through V6 upon personal review and interpretation. No previous EKGs available for comparison. Patient was found to have a small bowel obstruction with incarcerated hernia. Patient was admitted under Gen. surgery team and we were consulted this morning for medical management and evaluation of this patient. Patient underwent urgent open repair of incarcerated right inguinal hernia with small bowel resection on 08/27/23. Physical exam: Patient seen and fully evaluated at bedside this morning. Patient is postoperative day 6. This morning patient reports increased nausea, increased bloating, and decreased appetite. She does report again passing flatus this morning (totaling 4 times in the last 24 hours) and continues to deny having bowel movement since before surgery. Again patient reports nausea but denies any episodes of vomiting. Vital signs reviewed and stable. General: Nontoxic, no distress and appears stated age. Derm: Skin warm and dry, normal coloration for ethnicity. Head: Atraumatic, normocephalic and symmetric. Eyes: EOMs intact, no lid lag, and anicteric sclera Mouth: no lip lesions, mucus membranes moist Cardiovascular: regular rate and rhythm with normal S1S2, systolic murmur, positive posterior tibial pulses bilaterally, and cap refill < 2 seconds. Lungs: Respirations even, regular, and unlabored on room air. Lungs CTA gabriel aterally, no rhonchi, no rales, no wheezing, and no accessory muscle usage. Abdominal: Vertical incision just lateral to umbilicus to right side of abdomen. Dressing clean, dry, and intact. Mendoza catheter in place. Ext: ROM intact. No gross muscle atrophy, no edema, no contractures Neuro: Speech clear, face symmetrical and CN II-XII grossly intact with no noted focal neuro deficits Psych: Alert and oriented to person, place, time, and situation. Appropriate and pleasant affect. Assessment and Plan of Care: Small bowel obstruction with incarcerated hernia Status post open repair of incarcerated right inguinal hernia with small bowel resection 08/27/23 -Continue Zosyn 3.375 g every 8 hours day #8 -Management per primary admitting general surgery team including wound/dressing care, pain management, DVT prophylaxis, and advancement of diet. -Patient currently on full liquid diet with Premeire protein 3 times daily between meals for added protein/nutrition. -DVT prophylaxis with Lovenox. Urinary retention -Likely multifactorial, Mendoza catheter was reinserted on 08/30/23, will again try voiding challenge once patient has resolution of postoperative ileus. Stage III pressure ulcer left buttocks -Z-Guard and OptiForm -Turn every 2 hours to offload pressure Acute postsurgical blood loss anemia, anticipated and expected outcome of surgery -Hemoglobin stable at 11.9, no need for transfusion or any other interventions at this time. Elevated troponins, type II NSTEMI New-onset left bundle branch block -Cardiology evaluated in signing off at this time pending recovery from current surgery, cardiology recommending outpatient follow-up for stress testing. -Patient to continue with Lipitor 40 mg nightly -Continue to hold hydrochlorothiazide at this time. Hypertension Hyperlipidemia -Patient to continue daily medication regimen with atorvastatin 40 mg nightly. Will hold hydrochlorothiazide as patient is currently nothing by mouth pending surgical procedure and on gentle IV fluid hydration. Type II uzm-elywjsp-iyeqmgtrz diabetes mellitus -Hold metformin and place patient on glycemic protocol with NovoLog sliding scale to maintain tight glycemic control throughout hospitalization. Hypothyroidism -Patient to continue daily medication regimen with levothyroxine 50 g daily. Data and imaging reviewed: Morning labs reviewed. Blood glucose levels ranging between 100 up to 134 for the past 24 hours. Vital signs reviewed. Blood pressure 158/93, heart rate 76, respiratory rate 18, temp 98.0F, SpO2 94% on room air. Thank you for allowing us to participate in the care of this pleasant patient. Do not hesitate to contact us with questions. Someone can be reached from the [facility] [place] hospitalist group all hours of the day at [phone] or via perfect serve. Patient was seen independently by Nurse Practitioner. This document was prepared using [employer] dictation software. Please allow for errors in finance analyst while rare they do occur. Objective - Vital Signs Vital signs: Vital Signs Temp 98 F 09/02/23 07:45 Pulse 76 09/02/23 07:45 Resp 18 09/02/23 07:45 BP 158/93 09/02/23 07:45 Pulse Ox 94 L 09/02/23 07:45 FiO2 Intake & Output 09/01/23 09/02/23 09/02/23 18:59 06:59 18:59 Intake Total 620 590 Output Total 300 400 Balance 320 190 Intake: Oral 620 590 Output: Urine 300 400 Uretheral (Mendoza) 300 Other: Voiding Method Indwelling Catheter Indwelling Catheter - Labs CBC & Chem 7: 09/01/23 07:46 09/01/23 07:46 Labs: Abnormal Lab Results - Last 24 Hours (Table) 09/01/23 09/01/23 09/01/23 Range/Units 07:46 13:02 17:15 BUN 29 H (7-17) mg/dL Glucose 106 H (74-99) mg/dL POC Glucose (mg/dL) 134 H 116 H (70-110) mg/dL
[2023-09-02 17:26] LABS: Glucose,Whole Blood 108 mg/dL (70-110)
[2023-09-02] MEDS: ATORVASTATIN 40 MG TAB PO SCH (20:09)
[2023-09-02] MEDS: LACTATED RINGERS 1,000 ML IV SCH (20:09)
[2023-09-02 20:43] LABS: Glucose,Whole Blood 111 mg/dL (70-110)
[2023-09-03] MEDS: HYDROmorphone 0.5 MG/0.5 ML SYRINGE IVP PRN ×2 (03:53→08:42)
[2023-09-03] MEDS: ONDANSETRON 4 MG/2 ML VIAL IVP SCH ×4 (05:50→23:53)
[2023-09-03] MEDS: KETOROLAC 15 MG/ML 1 ML VIAL IVP SCH ×4 (05:50→23:52)
[2023-09-03] MEDS: LEVOTHYROXINE 50 MCG TAB PO SCH (05:51)
[2023-09-03] MEDS: ENOXAPARIN 40 MG/0.4 ML SYRINGE SQ SCH (07:26)
[2023-09-03] MEDS: SIMETHICONE 40 MG/0.6 ML DROPS 2,000 MG/30 ML BOTTLE PO SCH ×4 (07:27→21:13)
[2023-09-03 07:34] LABS: Glucose,Whole Blood 92 mg/dL (70-110)
[2023-09-03] MEDS: INSULIN ASPART (NovoLOG) 100 UNIT/ML VIAL SQ SCH ×4 (07:44→20:50)
[2023-09-03] MEDS: PANTOPRAZOLE 40 MG/10 ML VIAL IVP SCH (08:37)
[2023-09-03] MEDS: ZINC OXIDE PASTE (Z-GUARD) 1 APPLIC TOPICAL SCH ×2 (08:38→21:13)
[2023-09-03] MEDS ORDERED: HYDROcodone/APAP 5-325MG 1 EACH TAB PO PRN (10:12)
[2023-09-03 10:42] LABS: HCT 37.1 % (37.2-46.3); HGB 11.6 g/dL (12.0-15.0); MCH 28.6 pg (27.0-32.0); MCHC 31.3 g/dL (32.0-37.0); MCV 91.4 FL (80.0-97.0); Mean Platelet Volume 10.2 FL (9.5-12.2); NRBC Per 100 WBC 0 X 10*3/uL (0.00-0.01); Platelet Count 440 X 10*3/uL (140-440); RBC 4.06 X 10*6/uL (4.10-5.20); RDW 13.7 % (11.5-14.5); WBC 9.84 X 10*3/uL (4.50-10.00)
[2023-09-03 11:03] LABS: ALT 18 U/L (8-44); AST 22 U/L (13-35); Albumin 2.8 g/dL (3.8-4.9); Alkaline Phosphatase 62 U/L (41-126); Blood Urea Nitrogen 21.3 mg/dL (9.0-27.0); Calcium 9.4 mg/dL (8.7-10.3); Carbon Dioxide 25.2 mmol/L (21.6-31.8); Chloride 104 mmol/L (96-109); Glucose 101 mg/dL (70-110); Magnesium 1.5 mg/dL (1.5-2.4); Potassium 3.9 mmol/L (3.5-5.5); Sodium 142 mmol/L (135-145); Total Bilirubin 0.3 mg/dL (0.3-1.2); Total Protein 4.8 g/dL (6.2-8.2)
[2023-09-03 12:04] LABS: Glucose,Whole Blood 99 mg/dL (70-110)
--- NOTE | 2023-09-03 13:26 | P.PN ---
Subjective Progress Note Date: 09/03/23 History of Presenting Illness: Patient is a very pleasant 73-year-old female with a past medical history of hypertension, hyperlipidemia, type II wak-wvrybxj-slvbdmsnu diabetes mellitus and hypothyroidism. She presented to the emergency department on 08/26/23 secondary to complaints of abdominal pain with intractable nausea and vomiting. She underwent full evaluation in the emergency department. Labs completed and reviewed. CBC showing leukocytosis with WBC count of 14.8, coagulation profile normal findings, BMP showing mild hyponatremia with sodium 131, hypochloremia with chloride 87, hypercarbia with bicarb of 31 and elevated anion gap at 13. Liver profile normal findings. Urinalysis contaminated specimen not concerning for infection. CT abdomen and pelvis completed showing distal small bowel obstruction caused by moderate sized right inguinal hernia containing fat concerning for incarcerated hernia, multiple colonic diverticula, and cholelithiasis. EKG showing sinus rhythm 71 bpm with an incomplete bundle branch block and diffuse T-wave inversion in leads 1, 2, aVL, aVF, and leads V2 through V6 upon personal review and interpretation. No previous EKGs available for comparison. Patient was found to have a small bowel obstruction with incarcerated hernia. Patient was admitted under Gen. surgery team and we were consulted this morning for medical management and evaluation of this patient. Patient underwent urgent open repair of incarcerated right inguinal hernia with small bowel resection on 08/27/23. Physical exam: Patient seen and fully evaluated at bedside this morning. Patient is postoperative day 7. The patient reports continued passing of flatus and states she had a large bowel movement yesterday evening and a small one this morning. Patient's diet has been advanced to a heart healthy and carb consistent diet. Patient appears to be tolerating well, she reports continued nausea but denies any episodes of vomiting. Vital signs reviewed and stable. General: Nontoxic, no distress and appears stated age. Derm: Skin warm and dry, normal coloration for ethnicity. Head: Atraumatic, normocephalic and symmetric. Eyes: EOMs intact, no lid lag, and anicteric sclera Mouth: no lip lesions, mucus membranes moist Cardiovascular: regular rate and rhythm with normal S1S2, systolic murmur, positive posterior tibial pulses bilaterally, and cap refill < 2 seconds. Lungs: Respirations even, regular, and unlabored on room air. Lungs CTA bilaterally, no rhonchi, no rales, no wheezing, and no accessory muscle usage. Abdominal: Vertical incision just lateral to umbilicus to right side of abdomen. Dressing clean, dry, and intact. Mendoza catheter in place. Ext: ROM intact. No gross muscle atrophy, no edema, no contractures Neuro: Speech clear, face symmetrical and CN II-XII grossly intact with no noted focal neuro deficits Psych: Alert and oriented to person, place, time, and situation. Appropriate and pleasant affect. Assessment and Plan of Care: Small bowel obstruction with incarcerated hernia Status post open repair of incarcerated right inguinal hernia with small bowel resection 08/27/23 -Patient completed IV course of Zosyn. -Management per primary admitting general surgery team including wound/dressing care, pain management, DVT prophylaxis, and advancement of diet. -Patient currently on heart healthy and carb consistent diet with Premeire protein 3 times daily between meals for added protein/nutrition. -DVT prophylaxis with Lovenox. Urinary retention -Likely multifactorial, Mendoza catheter was reinserted on 08/30/23, now that patient is having return of normal bowel function and having bowel movements we will again remove Mendoza catheter and perform voiding challenge. Hypomagnesemia Magnesium 1.5 orders placed for magnesium sulfate 2 g IVPB 1 dose. Stage III pressure ulcer left buttocks -Z-Guard and OptiForm -Turn every 2 hours to offload pressure Acute postsurgical blood loss anemia, anticipated and expected outcome of surgery -Hemoglobin stable at 11.6, no need for transfusion or any other interventions at this time. Elevated troponins, type II NSTEMI New-onset left bundle branch block -Cardiology evaluated in signing off at this time pending recovery from current surgery, cardiology recommending outpatient follow-up for stress testing. -Patient to continue with Lipitor 40 mg nightly -Continue to hold hydrochlorothiazide at this time. Hypertension Hyperlipidemia -Patient to continue daily medication regimen with atorvastatin 40 mg nightly. Will hold hydrochlorothiazide as patient is currently nothing by mouth pending surgical procedure and on gentle IV fluid hydration. Type II wjg-rccswbd-wekzghzla diabetes mellitus -Hold metformin and place patient on glycemic protocol with NovoLog sliding scale to maintain tight glycemic control throughout hospitalization. Hypothyroidism -Patient to continue daily medication regimen with levothyroxine 50 g daily. Data and imaging reviewed: Labs completed and reviewed. CBC showing a stable normocytic anemia with hemoglobin of 11.6. BMP unremarkable. Magnesium low at 1.5. Liver profile showing no significant abnormalities with the exception of hypoalbuminemia with albumin of 2.8. Vital signs reviewed. Blood pressure 157/84, heart rate 70, respiratory rate 17, temp 97.6F, SpO2 of 93% on room air. Recommend removing Mendoza catheter and repeating voiding challenge now that pt is having active bowel movements with resoloution of post-surgical ileus. If patient has continued urinary retention, we will reinsert Mendoza catheter and patient will need to follow up outpatient with urology upon discharge. Medically patient is otherwise optimized for discharge with no further recommendations. Recommend patient follow up outpatient with PCP in 1-2 days a nd with tennis coach in 1-2 weeks after discharge. Patient may be discharged once cleared by primary admitting general surgery team. Patient requesting discharge to rehab. Thank you for allowing us to participate in the care of this pleasant patient. Do not hesitate to contact us with questions. Someone can be reached from the [facility] hospitalist group all hours of the day at [phone] or via [employer]. Patient was seen independently by Nurse Practitioner. This document was prepared using [employer] dictation software. Please allow for errors in mechanism inspector while rare they do occur. I reviewed the documentation as provided by the ENDY above, who is the original author of this note. I agree with the documented assessment and plan, with the following changes: none Objective - Vital Signs Vital signs: Vital Signs Temp 97.7 F 09/03/23 07:30 Pulse 71 09/03/23 07:30 Resp 18 09/03/23 07:30 BP 137/74 09/03/23 07:30 Pulse Ox 91 L 09/03/23 07:30 FiO2 Intake & Output 09/02/23 09/03/23 09/03/23 18:59 06:59 18:59 Intake Total 590 Output Total 400 Balance 190 Intake: Oral 590 Output: Urine 400 Uretheral (Mendoza) 400 Other: Voiding Method Indwelling Catheter Indwelling Catheter # Bowel Movements 1 - Labs CBC & Chem 7: 09/03/23 07:12 09/03/23 07:12 Labs: Abnormal Lab Results - Last 24 Hours (Table) 09/02/23 Range/Units 20:41 POC Glucose (mg/dL) 111 H (70-110) mg/dL
[2023-09-03] MEDS: MAGNESIUM SULFATE-D5W PMX 1 GM in DEXTROSE/WATER 1 100ML.BAG IVPB SCH ×2 (13:31→14:56)
--- NOTE | 2023-09-03 14:57 | P.PN ---
Subjective Progress Note Date: 09/03/23 CHIEF COMPLAINT: Small bowel obstruction secondary to incarcerated right inguinal hernia HISTORY OF PRESENT ILLNESS: Patient is postop day #7 status post open repair of incarcerated right inguinal hernia with small bowel resection. Patient sitting up at bedside chair. She did have a bowel movement yesterday. And a small pebble size BM this morning and she is having flatus. She is tolerating regular diet. Her Prevana wound vac has lost suctioning. Afebrile. WBC 9.8 for Hgb 11.6 platelets 440 sodium 142 potassium 3.9 creatinine 0 point PHYSICAL EXAM: VITAL SIGNS: Reviewed. GENERAL: Well-developed in no acute distress. ABDOMEN: Soft. Nondistended. Tender incision site. Prevana wound vac intact. NEUROLOGIC: Alert and oriented. Cranial nerves II through XII grossly intact. ASSESSMENT: 1. Small bowel obstruction secondary to incarcerated right inguinal hernia 2. Urinary retention with Worrell catheter placed 3. Hypomagnesemia. Mg is being replaced PLAN: -Continue regular diet -Discontinue IV fluid -Add York for oral pain management -Remove Prevana wound vac. Patient can shower. -consult Social work for possible ECF placement -Discontinue worrell catheter and monitor for retention -Encourage patient to use incentive spirometer -Encourage patient to ambulate -GI prophylaxis Pepcid and DVT prophylaxis Lovenox Physician Electrical Repairer note has been reviewed by physician. Signing provider agrees with the documented findings, assessment, and plan of care. Objective - Vital Signs Vital signs: Vital Signs Temp 97.7 F 09/03/23 07:30 Pulse 71 09/03/23 07:30 Resp 18 09/03/23 07:30 BP 137/74 09/03/23 07:30 Pulse Ox 91 L 09/03/23 07:30 FiO2 Intake & Output 09/02/23 09/03/23 09/03/23 18:59 06:59 18:59 Intake Total 590 Output Total 400 Balance 190 Weight 68.039 kg Intake: Oral 590 Output: Urine 400 Uretheral (Worrell) 400 Other: Voiding Method Indwelling Catheter Indwelling Catheter Indwelling Catheter # Bowel Movements 1 - Labs CBC & Chem 7: 09/03/23 07:12 09/03/23 07:12 Labs: Abnormal Lab Results - Last 24 Hours (Table) 09/02/23 09/03/23 09/03/23 Range/Units 20:41 07:12 07:12 RBC 4.06 L (4.10-5.20) X 10*6/uL Hgb 11.6 L (12.0-15.0) g/dL Hct 37.1 L (37.2-46.3) % MCHC 31.3 L (32.0-37.0) g/dL Anion Gap 12.80 H (4.00-12.00) mmol/L Creatinine 0.5 L (0.6-1.5) mg/dL BUN/Creatinine Ratio 42.60 H (12.00-20.00) Ratio POC Glucose (mg/dL) 111 H (70-110) mg/dL Total Protein 4.8 L (6.2-8.2) g/dL Albumin 2.8 L (3.8-4.9) g/dL Albumin/Globulin Ratio 1.40 L (1.60-3.17) Ratio
[2023-09-03] MEDS: LACTATED RINGERS 1,000 ML IV SCH (16:25)
[2023-09-03 17:06] LABS: Glucose,Whole Blood 103 mg/dL (70-110)
[2023-09-03] MEDS: ACETAMINOPHEN TAB 325 MG TAB PO PRN (17:09)
[2023-09-03 19:43] VITALS: RESP 16
[2023-09-03 20:41] LABS: Glucose,Whole Blood 107 mg/dL (70-110)
[2023-09-03] MEDS: DOCUSATE 100 MG CAP PO PRN (21:12)
[2023-09-03] MEDS: ATORVASTATIN 40 MG TAB PO SCH (21:12)
[2023-09-04] MEDS: LEVOTHYROXINE 50 MCG TAB PO SCH (05:35)
[2023-09-04] MEDS: KETOROLAC 15 MG/ML 1 ML VIAL IVP SCH (05:37)
[2023-09-04] MEDS: ONDANSETRON 4 MG/2 ML VIAL IVP SCH ×2 (05:39→12:16)
[2023-09-04 08:04] LABS: Glucose,Whole Blood 92 mg/dL (70-110)
[2023-09-04] MEDS: INSULIN ASPART (NovoLOG) 100 UNIT/ML VIAL SQ SCH ×2 (08:20→12:32)
[2023-09-04] MEDS: PANTOPRAZOLE 40 MG/10 ML VIAL IVP SCH (09:07)
[2023-09-04] MEDS: ZINC OXIDE PASTE (Z-GUARD) 1 APPLIC TOPICAL SCH (09:08)
--- NOTE | 2023-09-04 09:08 | CDI ---
Documentation Clarification Form Date: 09/04/2023 08:22:21 AM From: Chiquita Vides RN CCDS Phone: [phone] Admit Date: 08/26/2023 07:58:00 PM Patient Name: Cherrie Chen Visit Number: [id number] Discharge Date: ATTENTION: The Clinical Documentation Specialists (CDI) and [facility] Coding Staff appreciate your assistance in clarifying documentation. Please respond to the clarification below the line at the bottom and electronically sign. The CDI & [facility] Coding staff will review the response and follow-up if needed. Please note: Queries are made part of the Legal Health Record. If you have any questions, please contact the author of this message via ITS. Dr. Leroy Dutton Post-surgical ileus is documented 09/02, Medicine note and patient had a incarcerated hernia repair with small bowel resection. Additional clarification is requested regarding the relationship, if any, that exists between the diagnosis and the procedure. Patients Admitting Diagnosis: Small bowel obstruction secondary to incarcerated hernia Post-Operative Diagnosis: Small bowel obstruction secondary to incarcerated hernia Procedure performed: Open repair incarcerated right inguinal hernia with small bowel resection. History/Risk Factors: 73-year-old female with nausea and right lower abdominal pain for five days with a bulge. Medical History: DM Insulin dependent, HTN HLD and Hypothyroid. 08/27, H&P. Clinical Indicators: 09/01, Medicine note: Patient is postoperative day 5. Patient reports passing flatus, denies bowel movement and denies any episodes of nausea or vomiting. 09/02, I & O: one bowel movement 09/03: four bowel movements. Treatment: 09/01 Colace 100mg PO BID PRN; 09/02 Zofran IVP Q6HR MAYLIN; 09/02 Mylicon drops 40mg PO QID MAYLIN; Activity order ambulate QID and PRN What relationship, if any, exists between the diagnosis of [insert dx] and the procedure: [ ] Ileus is a complication of surgical procedure [xx ] Ileus is an expected outcome of the surgical procedure [ ] Ileus is related to patients co-morbid condition(s) of bowel resection surgery & not a complication of the procedure [ ] Other please specify ____ [ ] Unable to determine (Template Last Revised: November 2020) MTDD
[2023-09-04] MEDS: ENOXAPARIN 40 MG/0.4 ML SYRINGE SQ SCH (09:49)
[2023-09-04] MEDS: SIMETHICONE 40 MG/0.6 ML DROPS 2,000 MG/30 ML BOTTLE PO SCH ×2 (09:50→12:16)
--- NOTE | 2023-09-04 10:27 | CDI ---
Documentation Clarification Form Date: 09/04/2023 09:32:18 AM From: Chiquita Vides RN CDDS Phone: [phone] Admit Date: 08/26/2023 07:58:00 PM Patient Name: Cherrie Chen Visit Number: [id number] Discharge Date: ATTENTION: The Clinical Documentation Specialists (CDI) and [facility] Coding Staff appreciate your assistance in clarifying documentation. Please respond to the clarification below the line at the bottom and electronically sign. The CDI & [facility] Coding staff will review the response and follow-up if needed. Please note: Queries are made part of the Legal Health Record. If you have any questions, please contact the author of this message via ITS. Dr. Anahy Givens Conflicting documentation has been found in the medical record. As attending physician, please provide clarification. Stage II pressure ulcer left buttock, Medicine note, 08/30 & 08/31. Stage III pressure ulcer left buttock, Medicine note, 09/01, 09/02 & 09/03. History/Risk Factors:73 year old female presented with nausea and abdominal pain for five days. Medical history: DM insulin dependent, HLD, HTN and Thyroid disorder. 08/27, H&P. Clinical Indicators: Nursing pressure ulcer assessment: 08/30 Left buttock pressure injury hospital acquired. Alexandra wound color: Ecchymosis, Erythema Alexandra wound moistur:, Dry Scaly Alexandra wound Texture: Excoriation Treatment:08/30 optifoam applied, Turn Q2HR of offload pressure; Absorbent pad ck Q1HR, 08/30 Z-guard and optifoam Please clarify which diagnosis is most appropriate: [ ] Stage II left buttock pressure ulcer poa [ x ] Stage II left buttock pressure ulcer not poa [ ] Stage III left buttock pressure ulcer poa [ ] Stage III left buttock pressure ulcer not poa [ ] Left Buttock pressure ulcer stage II poa developed into stage III [ ] Other (please specify) [ ] Unable to determine (Template Last Revised: November 2020) MTDD
--- NOTE | 2023-09-04 11:44 | P.DS ---
Providers Date of admission: 08/26/23 19:58 Expected date of discharge: 09/04/23 Attending physician: Leroy Dutton Consults: 08/26/23 20:16 Consult Physician Urgent Consulting Provider: Diane Curiel Consult Reason/Comments: SBO 2' incarcerated right inguinal hernia Do you want consulting provider notified?: Yes 08/27/23 10:51 Consult Physician Urgent Consulting Provider: Ryan Padgett Consult Reason/Comments: Cardio clearance EKG abnormalities, inferiolateral T-wave inversion Do you want consulting provider notified?: Yes Primary care physician: Physician Nonstaff Hospital Course: Discharge diagnosis 1. Small bowel obstruction secondary to incarcerated right inguinal hernia 2. Urinary retention resolved Hospital course This is a 73-year-old female who presented with right lower quadrant abdominal pain. Computed tomography scan abdomen and pelvis had shown a distal small bowel obstruction secondary to a right inguinal hernia containing small bowel and fat. Patient is status post open repair of incarcerated right inguinal hernia with small bowel resection. Patient's pain is controlled. She is tolerating diet. She has been up and ambulating. She is working with physical therapy they're recommending rehab at discharge. She is having bowel movements. She's afebrile. She is stable for discharge. Please refer to chart for any further details. Physician Director Of Strategic Sourcing note has been reviewed by physician. Signing provider agrees with the documented findings, assessment, and plan of care. Patient Condition at Discharge: Stable Plan - Discharge Summary Discharge Rx Participant: Yes New Discharge Prescriptions: New Simethicone 40 mg/0.6 ml Drops [Mylicon Drops] 40 mg PO QID ml Docusate [Colace] 100 mg PO BID #30 capsule Ibuprofen [Motrin] 600 mg PO Q8HR PRN #30 tab PRN Reason: Pain Acetaminophen Oral Susp [Tylenol] 1,000 mg PO Q6H #400 ml Continue Levothyroxine Sodium [Synthroid] 50 mcg PO DAILY Ferrous Sulfate [Iron (65 MG Elemental)] 325 mg PO BID Turmeric Root Extract [Turmeric] 500 mg PO DAILY Garlic 1,000 mg PO DAILY Magnesium Oxide [Magox 400] 400 mg PO DAILY Fish Oil/Dha/Epa [Fish Oil 1,200 mg Fish Oil] 1 cap PO DAILY metFORMIN HCL [Glucophage] 850 mg PO BID hydroCHLOROthiazide [Hydrodiuril] 12.5 mg PO DAILY Omeprazole [PriLOSEC] 40 mg PO DAILY Atorvastatin [Lipitor] 40 mg PO HS Zinc Gluconate [Zinc] 50 mg PO DAILY Cyanocobalamin (Vitamin B-12) [Vitamin B-12] 1,000 mcg PO DAILY Ascorbic Acid [Vitamin C] 1,000 mg PO DAILY Cinnamon Bark [Cinnamon] 500 mg PO DAILY Discharge Medication List Ascorbic Acid [Vitamin C] 1,000 mg PO DAILY 08/26/23 [History] Atorvastatin [Lipitor] 40 mg PO HS 08/26/23 [History] Cinnamon Bark [Cinnamon] 500 mg PO DAILY 08/26/23 [History] Cyanocobalamin (Vitamin B-12) [Vitamin B-12] 1,000 mcg PO DAILY 08/26/23 [History] Ferrous Sulfate [Iron (65 MG Elemental)] 325 mg PO BID 08/26/23 [History] Fish Oil/Dha/Epa [Fish Oil 1,200 mg Fish Oil] 1 cap PO DAILY 08/26/23 [History] Garlic 1,000 mg PO DAILY 08/26/23 [History] Levothyroxine Sodium [Synthroid] 50 mcg PO DAILY 08/26/23 [History] Magnesium Oxide [Magox 400] 400 mg PO DAILY 08/26/23 [History] Omeprazole [PriLOSEC] 40 mg PO DAILY 08/26/23 [History] Turmeric Root Extract [Turmeric] 500 mg PO DAILY 08/26/23 [History] Zinc Gluconate [Zinc] 50 mg PO DAILY 08/26/23 [History] hydroCHLOROthiazide [Hydrodiuril] 12.5 mg PO DAILY 08/26/23 [History] metFORMIN HCL [Glucophage] 850 mg PO BID 08/26/23 [History] Acetaminophen Oral Susp [Tylenol] 1,000 mg PO Q6H #400 ml 09/04/23 [Rx] Docusate [Colace] 100 mg PO BID #30 capsule 09/04/23 [Rx] Ibuprofen [Motrin] 600 mg PO Q8HR PRN #30 tab 09/04/23 [Rx] Simethicone 40 mg/0.6 ml Drops [Mylicon Drops] 40 mg PO QID ml 09/04/23 [Rx] Follow up Appointment(s)/Referral(s): Ryan Padgett DO [STAFF PHYSICIAN] - 6 Weeks None,Stated [REFERRING] - 1-2 days Residential Home,Health [NON-STAFF] - 1 Week Leroy Dutton MD [STAFF PHYSICIAN] - 1 Week Activity/Diet/Wound Care/Special Instructions: PATIENT'S ADDRESS STAYING AT AFTER D/C: [address] [place], [place] No lifting over 10 pounds Shower daily. No soaking or tub baths for 2 weeks Very light activity until you are reevaluated at your follow up appointment with your surgeon Diet consistent carbohydrate Discharge Disposition: TRANSFER TO SNF/ECF
[2023-09-04] MEDS: ACETAMINOPHEN TAB 325 MG TAB PO PRN (12:29)
[2023-09-04 12:31] LABS: Glucose,Whole Blood 82 mg/dL (70-110)
[2023-09-04 13:27] VITALS: BP 137/78; PULSE 69; TEMP 98.1
--- NOTE | 2023-09-04 16:40 | P.PN ---
Subjective Progress Note Date: 09/04/23 History of Presenting Illness: Patient is a very pleasant 73-year-old female with a past medical history of hypertension, hyperlipidemia, type II [id number]-oyseggooj diabetes mellitus and hypothyroidism. She presented to the emergency department on 08/26/23 secondary to complaints of abdominal pain with intractable nausea and vomiting. She underwent full evaluation in the emergency department. Labs completed and reviewed. CBC showing leukocytosis with WBC count of 14.8, coagulation profile normal findings, BMP showing mild hyponatremia with sodium 131, hypochloremia with chloride 87, hypercarbia with bicarb of 31 and elevated anion gap at 13. Liver profile normal findings. Urinalysis contaminated specimen not concerning for infection. CT abdomen and pelvis completed showing distal small bowel obstruction caused by moderate sized right inguinal hernia containing fat concerning for incarcerated hernia, multiple colonic diverticula, and cholelithiasis. EKG showing sinus rhythm 71 bpm with an incomplete bundle branch block and diffuse T-wave inversion in leads 1, 2, aVL, aVF, and leads V2 through V6 upon personal review and interpretation. No previous EKGs available for comparison. Patient was found to have a small bowel obstruction with incarcerated hernia. Patient was admitted under Gen. surgery team and we were consulted this morning for medical management and evaluation of this patient. Patient underwent urgent open repair of incarcerated right inguinal hernia with small bowel resection on 08/27/23. Physical exam: Patient seen and fully evaluated at bedside this morning. Patient is postoperative day 8. The patient reports continued bowel function with multiple bowel movements. Patient also had Mendoza catheter removed yesterday and voiding challenge successfully completed. Patient has been urinating without any reported difficulties. She is tolerating regular diet and denies any episodes of nausea or vomiting. Vital signs reviewed and stable. General: Nontoxic, no distress and appears stated age. Derm: Skin warm and dry, normal coloration for ethnicity. Head: Atraumatic, normocephalic and symmetric. Eyes: EOMs intact, no lid lag, and anicteric sclera Mouth: no lip lesions, mucus membranes moist Cardiovascular: regular rate and rhythm with normal S1S2, systolic murmur, positive posterior tibial pulses bilaterally, and cap refill < 2 seconds. Lungs: Respirations even, regular, and unlabored on room air. Lungs CTA bila terally, no rhonchi, no rales, no wheezing, and no accessory muscle usage. Abdominal: Vertical incision just lateral to umbilicus to right side of abdomen. Dressing clean, dry, and intact. Mendoza catheter in place. Ext: ROM intact. No gross muscle atrophy, no edema, no contractures Neuro: Speech clear, face symmetrical and CN II-XII grossly intact with no noted focal neuro deficits Psych: Alert and oriented to person, place, time, and situation. Appropriate and pleasant affect. Assessment and Plan of Care: Small bowel obstruction with incarcerated hernia Status post open repair of incarcerated right inguinal hernia with small bowel resection 08/27/23 -Patient completed IV course of Zosyn. -Management per primary admitting general surgery team including wound/dressing care, pain management, DVT prophylaxis, and advancement of diet. -Patient currently on heart healthy and carb consistent diet with Premeire protein 3 times daily between meals for added protein/nutrition. -DVT prophylaxis with Lovenox. Urinary retention, resolved -Mendoza catheter removed 09/03/23 and voiding challenge successfully completed. Patient has been urinating without any reported difficulties. Hypomagnesemia replaced Magnesium was 1.5 and patient received magnesium sulfate 2 g IVPB 1 dose. Stage III pressure ulcer left buttocks -Z-Guard and OptiForm -Turn every 2 hours to offload pressure Acute postsurgical blood loss anemia, anticipated and expected outcome of surgery -Hemoglobin stable at 11.6, no need for transfusion or any other interventions at this time. Elevated troponins, type II NSTEMI New-onset left bundle branch block -Cardiology evaluated and signed off at this time pending recovery from current surgery, cardiology recommending outpatient follow-up for stress testing. -Patient to continue with Lipitor 40 mg nightly -Continue to hold hydrochlorothiazide at this time. Hypertension Hyperlipidemia -Patient to continue daily medication regimen with atorvastatin 40 mg nightly. Will hold hydrochlorothiazide as patient is currently nothing by mouth pending surgical procedure and on gentle IV fluid hydration. Type II usr-wxmciyx-hlnwvzsev diabetes mellitus -Hold metformin and place patient on glycemic protocol with NovoLog sliding scale to maintain tight glycemic control throughout hospitalization. Hypothyroidism -Patient to continue daily medication regimen with levothyroxine 50 g daily. Data and imaging reviewed: Vital signs reviewed. Blood pressure 153/68, heart rate 70, respiratory rate 16, temp 98.2F, SpO2 of 94% on room air. Medically patient is optimized for discharge with no further recommendations. Recommend patient follow up outpatient with PCP in 1-2 days and with senior developer in 1-2 weeks after discharge. Patient may be discharged once cleared by primary admitting general surgery team. Patient awaiting placement in rehab. Thank you for allowing us to participate in the care of this pleasant patient. Do not hesitate to contact us with questions. Someone can be reached from the [facility] all hours of the day at [phone] or via perfect serve. Patient was seen independently by Nurse Practitioner. This document was prepared using [employer] dictation software. Please allow for errors in insurance plan specialist while rare they do occur. Dewayne Nava NP rendered care for this patient independently, reviewed the findings and plan as documented in the note above. I did not physically speak with or examine the patient on this date. Objective - Vital Signs Vital signs: Vital Signs Temp 97.8 F 09/04/23 06:45 Pulse 68 09/04/23 06:45 Resp 16 09/04/23 06:45 BP 138/64 09/04/23 06:45 Pulse Ox 95 09/04/23 06:45 FiO2 Intake & Output 09/03/23 09/04/23 09/04/23 18:59 06:59 18:59 Intake Total 800 Output Total 300 Balance -300 800 Weight 68.039 kg Intake: Oral 800 Output: Urine 300 Other: Voiding Method Indwelling Catheter Bedside Commode # Voids 1 # Bowel Movements 1 4 - Labs CBC & Chem 7: 09/03/23 07:12 09/03/23 07:12 Labs: Abnormal Lab Results - Last 24 Hours (Table) 09/03/23 09/03/23 Range/Units 07:12 07:12 RBC 4.06 L (4.10-5.20) X 10*6/uL Hgb 11.6 L (12.0-15.0) g/dL Hct 37.1 L (37.2-46.3) % MCHC 31.3 L (32.0-37.0) g/dL Anion Gap 12.80 H (4.00-12.00) mmol/L Creatinine 0.5 L (0.6-1.5) mg/dL BUN/Creatinine Ratio 42.60 H (12.00-20.00) Ratio Total Protein 4.8 L (6.2-8.2) g/dL Albumin 2.8 L (3.8-4.9) g/dL Albumin/Globulin Ratio 1.40 L (1.60-3.17) Ratio
--- NOTE | 2023-10-05 07:45 | P.OP ---
Date of Procedure: 08/27/23 Preoperative Diagnosis: Incarcerated right inguinal hernia Postoperative Diagnosis: Incarcerated right inguinal hernia causing small bowel obstruction Procedure(s) Performed: Open repair of radial hernia Small bowel resection Anesthesia: DOC Surgeon: Leroy Dutton Estimated Blood Loss (ml): 25 Pathology: other (Small bowel, hernia sac) Condition: stable Disposition: PACU Description of Procedure: Patient's placed on the operative table in supine position. She received g eneral endotracheal tube anesthesia. Her abdomen was prepped and draped in sterile fashion. A standard skin incision made in the right groin. And then using blunt sharp dissection with cautery the hernia sac was dissected free. Hernia sac was opened. There appeared to be ischemic bowel within the hernia at this point a low midline skin incision made then using electrocautery the abdominal wall was divided. The pelvic cavity is entered. The hernia was reduced into the peritoneal cavity. The small bowel was examined. The small bowel appeared to be ischemic. This point a segmental small bowel resection performed by dividing the small bowel proximally distally with the SERENA stapler. And then a [id number] functional end-to-end staple S stenosis was created using SERENA and TA stapler. 3-0 GI silk sutures as a crotch stitch. The abdomen was irrigated there is no bleeding seen. At this point the hernia was repaired. Due to the risk of infection site not to place mesh. The hernia sac was dissected to pathology. The hernia was repaired by closing the hernia space with 2-0 Ethibond suture. The fascia was approximated to the shelving edge of the inguinal ligament. And then the fascia external oblique was closed with 0 Vicryl. The midline's incision was closed with looped #1 PDS suture. Skin was closed eryn. Patient top she will was sent to recovery room in stable co ndition.
== END 2023-09-04 15:40 | DRG 329 ==
LOC: EC 13:34 → 4SSUR 19:58 → 5NMEDONC 08-27 14:04
PROVIDERS: ADMIT Surgery; ATTEND Surgery
PROC: 0D9670Z Drainage of Stomach with Drainage Device, Via Natural or Artificial Opening (ICD-10-PCS; 2023-08-26)
PROC: 0DB80ZZ Excision of Small Intestine, Open Approach (ICD-10-PCS; principal; 2023-08-27 17:10)
PROC: 0YQ50ZZ Repair Right Inguinal Region, Open Approach (ICD-10-PCS; principal; 2023-08-27 17:10)
DX: K40.30 Unilateral inguinal hernia, with obstruction, without gangrene, not specified as recurrent (principal); I21.A1 Myocardial infarction type 2; D62 Acute posthemorrhagic anemia; E87.1 Hypo-osmolality and hyponatremia; K56.7 Ileus, unspecified; K57.32 Diverticulitis of large intestine without perforation or abscess without bleeding; E03.9 Hypothyroidism, unspecified; E78.5 Hyperlipidemia, unspecified; K80.20 Calculus of gallbladder without cholecystitis without obstruction; E83.42 Hypomagnesemia; E87.8 Other disorders of electrolyte and fluid balance, not elsewhere classified; I10 Essential (primary) hypertension; I44.7 Left bundle-branch block, unspecified; Z82.49 Family history of ischemic heart disease and other diseases of the circulatory system; L89.322 Pressure ulcer of left buttock, stage 2; Z79.84 Long term (current) use of oral hypoglycemic drugs; Z79.890 Hormone replacement therapy; Z79.899 Other long term (current) drug therapy; Z83.3 Family history of diabetes mellitus; Z71.3 Dietary counseling and surveillance
CPT/HCPCS: 36415; 64999; 71045; 74176; 80048; 80053; 81001; 82150; 83036; 83605; 83690; 83735; 84484; 85025; 85027; 85610; 85730; 86850; 86900; 86901; 88302; 88307; 93005; 93306; 94760; 96361; 96365; 96366; 96375; 96376; 99285